=== PATIENT | male | born 1955 | race Caucasian/White ===

== ENCOUNTER 2016-11-25 22:59 | Emergency (ER) | payer MEDICARE, OTHER ==
[~2016-11-25 22:59] MED LIST: CETI5TAB2 PO; CYCL5TAB PO; DULO20CA PO; GABA-585 PO; HYDR-2163 PO; NAPR250T2 PO; PRED1TAB3 PO; TRAM50TA PO; TRAZ50TA15 PO
[2016-11-25] MEDS ORDERED: IPRATRPIUM/ALBUTEROL 0.5/2.5MG 3 ML NEBU. NEB ONE (23:15)
[2016-11-25] MEDS ORDERED: ALBUTEROL SULFATE 2.5 MG/3 ML NEBU. NEB ONE (23:30)
[2016-11-25 23:56] LABS: BASO # 0.1 x10^3/uL (0.0-0.2); BASO % 1 % (0-3); EOS % 3 % (0-3); HEMATOCRIT 48.8 % (39.0-53.0); HEMOGLOBIN 15.9 g/dL (13.0-17.5); LYMPH # 2.8 x10^3/uL (1.0-4.8); LYMPH % 31 % (24-48); MEAN CORPUSCULAR HEMOGLOBIN 28 pg (25-35); MEAN CORPUSCULAR HGB CONC 33 g/dL (31-37); MEAN CORPUSCULAR VOLUME 86 fL (79-100); MONO % 9 % (0-9); NEUT % 57 % (31-73); PLATELET COUNT 190 x10^3/uL (140-400); RED BLOOD COUNT 5.67 x10^6/uL (4.30-5.70); RED CELL DISTRIBUTION WIDTH 13.6 % (11.5-14.5); WHITE BLOOD COUNT 9.2 x10^3/uL (4.0-11.0)
[2016-11-26 00:12] LABS: ANION GAP 9 (6-14); BLOOD UREA NITROGEN 11 mg/dL (8-26); CALCIUM 8.6 mg/dL (8.5-10.1); CARBON DIOXIDE 27 mmol/L (21-32); CHLORIDE 106 mmol/L (98-107); CREATININE 1.1 mg/dL (0.7-1.3); GFR 68.3; GLUCOSE 105 mg/dL (70-99); SODIUM 142 mmol/L (136-145)
[2016-11-26 00:19] LABS: ALBUMIN 3.7 g/dL (3.4-5.0); ALK PHOS 74 U/L (46-116); ALT (SGPT) 17 U/L (16-63); AST (SGOT) 10 U/L (15-37); DIRECT BILIRUBIN < 0.1 mg/dL (0.0-0.2); TOTAL BILIRUBIN 0.2 mg/dL (0.2-1.0); TOTAL PROTEIN 7.4 g/dL (6.4-8.2)
[2016-11-26] MEDS ORDERED: PREDNISONE 10 MG TABLET PO ONE (01:00)
[2016-11-26] MEDS ORDERED: ALBUTEROL SULFATE 2.5 MG/3 ML NEBU. NEB ONE (01:00)
[2016-11-26 01:04] VITALS: BP 125/78
--- NOTE | 2016-11-26 01:10 | PHYS DOC ---
Past Medical History Past Medical History: Depression, Other Additional Past Medical Histor: CHRONIC BACK PAIN, PANIC ATTACKS, R hip abcess Past Surgical History: Other Additional Past Surgical Histo: R LEG FRACTURE REPAIR, L wrist Additional Information: 1 pack per day Alcohol Use: Occasionally Drug Use: None Adult General Chief Complaint Chief Complaint: SHORTNESS OF BREATH HPI HPI 61-year-old male presenting to the emergency department today with worsening shortness of breath for a week with a dry productive cough. He describes his sputum is white thick. He also has neck and back pain. He denies neck stiffness. He denies meningismus or confusion. His fevers or chills. Location lungs. Duration intermittent. No alleviating factors. Worse with walking. Review of systems is negative for chest pain abdominal pain nausea vomiting or diaphoresis.All other review of systems is negative unless otherwise noted in history of present illness. Review of Systems Review of Systems See above. Current Medications Current Medications Current Medications Medications (Trade) Dose Ordered Sig/Cyndee Start Time Stop Time Status Last Admin Dose Admin Albuterol Sulfate (Ventolin Neb Soln) 2.5 mg 1X ONCE 11/26/16 01:00 11/26/16 01:01 DC 11/26/16 00:54 2.5 MG Albuterol/ Ipratropium (Duoneb) 3 ml 1X ONCE 11/25/16 23:15 11/25/16 23:16 DC 11/25/16 23:17 3 ML Prednisone (Prednisone) 50 mg 1X ONCE 11/26/16 01:00 11/26/16 01:01 DC 11/26/16 00:49 50 MG Allergies Allergies Allergies Coded Allergies Type Severity Reaction Last Updated Verified No Known Drug Allergies 04/28/14 No Physical Exam Physical Exam Constitutional: Well developed, well nourished, no acute distress, non-toxic appearance. HENT: Normocephalic, atraumatic, bilateral external ears normal, oropharynx moist, no oral exudates, nose normal. [] Eyes: PERRLA, EOMI, conjunctiva normal, no discharge. Neck: Normal range of motion, no tenderness, supple, no stridor. [] Cardiovascular:Heart rate regular rhythm, no murmur Lungs & Thorax: Patient has diffuse wheezing bilaterally with prolonged expiratory phase. Abdomen: Bowel sounds normal, soft, no tenderness, no masses, no pulsatile masses. Skin: Warm, dry, no erythema, no rash. [] Back: No tenderness, no CVA tenderness. [] Extremities: No tenderness, no cyanosis, no clubbing, ROM intact, no edema. [] Neurologic: Alert and oriented X 3, normal motor function, normal sensory function, no focal deficits noted. [] Psychologic: Affect normal, judgement normal, mood normal. [] Current Patient Data Vital Signs Vital Signs Date Time Temp Pulse Resp B/P Pulse Ox O2 Delivery O2 Flow Rate FiO2 11/26/16 01:04 74 19 125/78 93 Nasal Cannula 2 11/25/16 23:00 97.0 97.0 Lab Values Laboratory Tests Test 11/25/16 23:50 White Blood Count 9.2x10^3/uL (4.0-11.0) Red Blood Count 5.67x10^6/uL (4.30-5.70) Hemoglobin 15.9g/dL (13.0-17.5) Hematocrit 48.8% (39.0-53.0) Mean Corpuscular Volume 86fL (79-100) Mean Corpuscular Hemoglobin 28pg (25-35) Mean Corpuscular Hemoglobin Concent 33g/dL (31-37) Red Cell Distribution Width 13.6% (11.5-14.5) Platelet Count 190x10^3/uL (140-400) Neutrophils (%) (Auto) 57% (31-73) Lymphocytes (%) (Auto) 31% (24-48) Monocytes (%) (Auto) 9% (0-9) Eosinophils (%) (Auto) 3% (0-3) Basophils (%) (Auto) 1% (0-3) Neutrophils # (Auto) 5.2x10^3uL (1.8-7.7) Lymphocytes # (Auto) 2.8x10^3/uL (1.0-4.8) Monocytes # (Auto) 0.8x10^3/uL (0.0-1.1) Eosinophils # (Auto) 0.2x10^3/uL (0.0-0.7) Basophils # (Auto) 0.1x10^3/uL (0.0-0.2) Sodium Level 142mmol/L (136-145) Potassium Level 4.0mmol/L (3.5-5.1) Chloride Level 106mmol/L (98-107) Carbon Dioxide Level 27mmol/L (21-32) Anion Gap 9 (6-14) Blood Urea Nitrogen 11mg/dL (8-26) Creatinine 1.1mg/dL (0.7-1.3) Estimated GFR (Cockcroft-Gault) 68.3 Glucose Level 105mg/dL (70-99) H Calcium Level 8.6mg/dL (8.5-10.1) Total Bilirubin 0.2mg/dL (0.2-1.0) Direct Bilirubin < 0.1mg/dL (0.0-0.2) Aspartate Amino Transferase (AST) 10U/L (15-37) L Alanine Aminotransferase (ALT) 17U/L (16-63) Alkaline Phosphatase 74U/L (46-116) Troponin I Quantitative < 0.017ng/mL (0.000-0.055) FW-Mrw-H-Type Natriuretic Peptide 62pg/mL (0-124) Total Protein 7.4g/dL (6.4-8.2) Albumin 3.7g/dL (3.4-5.0) Lipase 4140U/L (73-393) H Laboratory Tests 11/25/16 23:50 Laboratory Tests 11/25/16 23:50 EKG EKG [] EKG shows sinus rhythm with a regular rate. [place] is leftward. ST segments are congruent.. Intervals show prolonged QRS. Right bundle-branch block present. Radiology/Procedures Radiology/Procedures [] Course & Med Decision Making Course & Med Decision Making Pertinent Labs and Imaging studies reviewed. (See chart for details) [] 61-year-old male presenting the emergency department with worsening shortness of breath. Vital signs satting well on 2 L with hypertension. Otherwise unremarkable. Afebrile. Physical exam showed wheezing bilaterally suggestive of COPD. The patient was given multiple nebulizer medications and oral prednisone in the emergency department. EKG not suggestive of ischemia. Chest x-ray shows no obvious infiltrate or pneumothorax. Blood work was obtained which showed normal CBC. Chemistry panel unremarkable. Troponin negative. Patient did have back pain however did not have abdominal pain nausea or vomiting. He did not have chest pain. After his nebulizing medications the patient felt much better and was desiring to go home. He was subsequently discharged home. Unfortunately after the patient discharge I saw the patient's lipase was elevated. He did have back pain however did not have nausea and vomiting. I called the patient back at approximately 3 AM. The patient did not answer. We will attempt to call the patient again in the morning. I was able to get a hold of the patient in the morning. He states he is not having any nausea or vomiting. His back pain has been present for many weeks. I recommended that he follow-up with his primary care physician over the next day or 2 to follow- up with a repeat lipase level and reevaluation. He agreed and verbalizes understanding. Dragon Disclaimer Dragon Disclaimer This electronic medical record was generated, in whole or in part, using a voice recognition dictation system. Departure Departure Impression: Primary Impression: COPD exacerbation Disposition: HOME, SELF-CARE Condition: STABLE Referrals: LUCIA SILVA Jr, MD (PCP) Patient Instructions: Chronic Obstructive Pulmonary Disease, Chronic Obstructive Pulmonary Disease Exacerbation Additional Instructions: Thank you for allowing us to participate in your care today. Followup with your primary care physician in 3 days if your symptoms do not improve. If you do not have a primary care provider you can ask for a list of our primary care providers. Return to the emergency department you have any new or concerning findings. This should be evaluated by the primary care physician and any necessary consulting services for continued management within a few days after discharge. Return to emergency room if you have any new or concerning symptoms including but not limited to fever, chills, nausea, vomiting, intractable pain, any new rashes, chest pain, shortness of air, uncontrolled bleeding, difficulty breathing, and/or vision loss. Scripts Prednisone 50 Mg [id number] Mg PO DAILY #5 TAB Prov:VERÓNICA KNOWLES MD 11/26/16 Albuterol Sulfate (Proair Hfa Inhaler)8.5 Gm [id number].[id number] Puff INH PRN Q6HRS PRN SHORTNESS OF BREATH #1 INHALER Prov:VERÓNICA KNOWLES MD 11/26/16 VERÓNICA KNOWLES MD Nov 26, 2016 01:10
[2016-11-26] MEDS ORDERED: PROAIR HFA8.5 GM INH (01:12)
[2016-11-26] MEDS ORDERED: PRED50TA PO (01:12)
--- NOTE | 2016-11-26 06:22 | EKG ---
[facility] [address] [place] [address] Test Date: 2016-11-25 Test Time: 23:07:27 Pat Name: JOZEF CORADO Department: Room: Gender: M [employer]ishment [employer]: : [id number] Requested By: VERÓNICA KNOWLES Order Number: [id number] Reading MD: Measurements Intervals Marquez Rate: 72 P: 59 DC: 144 QRS: -72 QRSD: 134 T: 26 QT: 406 QTc: 446 Interpretive Statements SINUS RHYTHM ABNORMAL LEFT AXIS DEVIATION LEFT ANTERIOR FASCICULAR BLOCK RIGHT BUNDLE BRANCH BLOCK BIFASCICULAR BLOCK ABNORMAL ECG RI6.01 No previous ECG available for comparison
--- NOTE | 2016-11-26 07:49 | RAD ---
Portable chest, 11/25/2016: History: Cough, shortness of breath Comparison is made to a study from 04/29/2014. The heart size and pulmonary vascularity are normal. No pulmonary infiltrates are seen. There is no evidence of pleural fluid. IMPRESSION: No acute cardiopulmonary abnormality is detected.
== END 2016-11-26 01:35 | disposition home or self-care (01) ==
LOC: ER 22:59
DX: J44.1 Chronic obstructive pulmonary disease with (acute) exacerbation (principal); F32.9 Major depressive disorder, single episode, unspecified; F41.0 Panic disorder [episodic paroxysmal anxiety]; G89.29 Other chronic pain; F17.210 Nicotine dependence, cigarettes, uncomplicated
CPT/HCPCS: 36415; 71010; 80048; 80076; 83690; 83880; 84484; 85027; 93005; 94640; 99285; J7512; J7620

== ENCOUNTER 2019-03-25 19:43 | Emergency (ER) | payer BC ==
[~2019-03-25] VITALS: Ht 175.3 cm; Wt 99.8 kg
[~2019-03-25 19:43] MED LIST changes: +ALBU2.5V8 INH; -NAPR250T2 PO; +NAPR250T6 PO; +PRED50TA PO; +TRAZ-118 PO; -TRAZ50TA15 PO
[2019-03-25] MEDS ORDERED: IBUPROFEN 200 MG TABLET. PO ONE (20:45)
--- NOTE | 2019-03-25 20:52 | RAD ---
CT scan of the chest, abdomen and pelvis without contrast 03/25/2019 CLINICAL HISTORY: Chest, abdominal and pelvic pain post fall. TECHNIQUE: Unenhanced, contiguous, 5 mm axial sections were obtained through the abdomen and pelvis. FINDINGS: The absence of oral and intravenous contrast limits the study for the detection of solid organ and bowel pathology. Atherosclerotic calcification of the thoracic aorta and its branches is noted. The thoracic aorta is mildly tortuous but tapers normally. Scattered coronary artery calcifications are seen. No mediastinal hematoma is noted. The heart is normal in size. No acute pulmonary infiltrate is seen. No pleural effusion or pneumothorax is noted. The liver parenchyma has a decreased attenuation consistent with fatty infiltration. The spleen, pancreas, adrenal glands and kidneys are within normal limits. Atherosclerotic calcification of the abdominal aorta is seen. The abdominal aorta tapers normally. The gallbladder is contracted. No free fluid or free air is seen within the abdomen. Air and stool seen throughout the colon. Images through the pelvis demonstrate the urinary bladder distended with urine. No free fluid is seen. No pelvic hematoma is noted. Very mild S-shaped curvature of the thoracolumbar spine is seen. An old appearing compression fracture of the T8 vertebral body is seen. Degenerative changes are seen involving the mid and lower thoracic spine and throughout the lumbar spine and both hips. IMPRESSION: No acute abnormality is seen. Electronically signed by: Leonardo Butt MD (03/25/2019 8:49 PM) [facility]
[2019-03-25] MEDS ORDERED: ORPH100T PO (21:28)
[2019-03-25] MEDS ORDERED: IBUP-1007 PO (21:28)
--- NOTE | 2019-03-25 21:28 | PHYS DOC ---
Past Medical History Past Medical History: Anxiety, COPD, Depression Additional Past Medical Histor: CHRONIC BACK PAIN, PANIC ATTACKS, R hip abcess Past Surgical History: Other Additional Past Surgical Histo: LEFT WRIST, RIGHT HIP ABSCESS REMOVAL, KLEBER IN RIGHT LEG Additional Information: 1 PPD Alcohol Use: Rarely Drug Use: None Adult General Chief Complaint Chief Complaint: BACK INJURY HPI HPI Patient is a 63 year old [f__sex] who presents with [] Review of Systems Review of Systems Constitutional: Denies fever or chills [] Eyes: Denies change in visual acuity, redness, or eye pain [] HENT: Denies nasal congestion or sore throat [] Respiratory: Denies cough or shortness of breath [] Cardiovascular: No additional information not addressed in HPI [] GI: Denies abdominal pain, nausea, vomiting, bloody stools or diarrhea [] : Denies dysuria or hematuria [] Musculoskeletal: Denies back pain or joint pain [] Integument: Denies rash or skin lesions [] Neurologic: Denies headache, focal weakness or sensory changes [] Endocrine: Denies polyuria or polydipsia [] All other systems were reviewed and found to be within normal limits, except as documented in this note. Current Medications Current Medications Current Medications Medications (Trade) Dose Ordered Sig/Cyndee Start Time Stop Time Status Last Admin Dose Admin Ibuprofen (Motrin) 600 mg 1X ONCE 03/25/19 20:45 03/25/19 20:46 DC 03/25/19 21:06 600 MG Allergies Allergies Allergies Coded Allergies Type Severity Reaction Last Updated Verified No Known Drug Allergies 04/28/14 No Physical Exam Physical Exam Constitutional: Well developed, well nourished, no acute distress, non-toxic appearance. [] HENT: Normocephalic, atraumatic, bilateral external ears normal, oropharynx moist, no oral exudates, nose normal. [] Eyes: PERRLA, EOMI, conjunctiva normal, no discharge. [] Neck: Normal range of motion, no tenderness, supple, no stridor. [] Cardiovascular:Heart rate regular rhythm, no murmur [] Lungs & Thorax: Bilateral breath sounds clear to auscultation [] Abdomen: Bowel sounds normal, soft, no tenderness, no masses, no pulsatile mass es. [] Skin: Warm, dry, no erythema, no rash. [] Back: No tenderness, no CVA tenderness. [] Extremities: No tenderness, no cyanosis, no clubbing, ROM intact, no edema. [] Neurologic: Alert and oriented X 3, normal motor function, normal sensory function, no focal deficits noted. [] Psychologic: Affect normal, judgement normal, mood normal. [] Current Patient Data Vital Signs Vital Signs Date Time Temp Pulse Resp B/P (MAP) Pulse Ox O2 Delivery O2 Flow Rate FiO2 03/25/19 20:10 98.9 75 11 149/88 (108) 98 Room Air 98.9 EKG EKG [] Radiology/Procedures Radiology/Procedures [] Course & Med Decision Making Course & Med Decision Making Pertinent Labs and Imaging studies reviewed. (See chart for details) [] Dragon Disclaimer Dragon Disclaimer This electronic medical record was generated, in whole or in part, using a voice recognition dictation system. Departure Departure Impression: Primary Impression: Fall Additional Impressions: Abdominal contusion Back contusion Disposition: HOME, SELF-CARE Condition: STABLE Referrals: ANNIE ABEL MD (PCP) Patient Instructions: Contusion, [id number], Fall Prevention and Home Safety, [id number], Incentive Spirometer Scripts Orphenadrine Citrate (ORPHENADRINE CITRATE) 100 Mg Tablet.er 100 MG PO BID PRN for MUSCLE PAIN, #14 Prov: JUVENTINO PHAM DO 03/25/19 Ibuprofen (IBUPROFEN) 600 Mg Tablet 600 MG PO Q8HRS PRN for PAIN, #20 TAB Prov: JUVENTINO PHAM DO 03/25/19 Problem Qualifiers Primary Impression: Fall Encounter type: initial encounter Qualified Codes: W19.XXXA - Unspecified fall, initial encounter Additional Impressions: Abdominal contusion Encounter type: initial encounter Qualified Codes: S30.1XXA - Contusion of abdominal wall, initial encounter Back contusion Encounter type: initial encounter Laterality: right Qualified Codes: S20.221A - Contusion of right back wall of thorax, initial encounter JUVENTINO PHAM DO March 25, 2019 21:28
[2019-03-25 21:30] VITALS: BP 141/89
== END 2019-03-25 21:30 | disposition home or self-care (01) ==
LOC: ER 19:43
DX: S30.1XXA Contusion of abdominal wall, initial encounter (principal); S20.221A Contusion of right back wall of thorax, initial encounter; J44.9 Chronic obstructive pulmonary disease, unspecified; G89.29 Other chronic pain; F17.200 Nicotine dependence, unspecified, uncomplicated; W11.XXXA Fall on and from ladder, initial encounter; Y93.E9 Activity, other interior property and clothing maintenance; Y92.89 Other specified places as the place of occurrence of the external cause; Y99.8 Other external cause status
CPT/HCPCS: 71250; 74176; 99284-25

== ENCOUNTER 2019-06-26 15:49 | Emergency (ER) | payer BC ==
[~2019-06-26] VITALS: Ht 175.3 cm; Wt 99.8 kg
[~2019-06-26 15:49] MED LIST changes: +IBUP-1007 PO; +ORPH100T PO
[2019-06-26 16:39] VITALS: BP 147/83
[2019-06-26] MEDS ORDERED: CYCL5TAB PO (17:00)
--- NOTE | 2019-06-26 17:01 | PHYS DOC ---
Past Medical History Past Medical History: Anxiety, COPD, Depression Additional Past Medical Histor: CHRONIC BACK PAIN, PANIC ATTACKS, R hip abcess Past Surgical History: Other Additional Past Surgical Histo: LEFT WRIST, RIGHT HIP ABSCESS REMOVAL, KLEBER IN RIGHT LEG Alcohol Use: Rarely Drug Use: None Adult General Chief Complaint Chief Complaint: HIP PAIN HPI HPI 63-year-old male presenting the emergency department today with left hip pain that is a sharp shooting pain that is nonradiating. It is worse when he lifts up his leg. He is able to ambulate without any difficulty. The pain is not worse when he ambulates. He denies any numbness weakness or tingling. Review of systems is negative for chest pain shortness of breath cough fevers chills. All other review of systems is negative. ED course: 63-year-old male presenting with left hip pain. No pain with passive range of motion of the hip. He does have pain when he tries to lift up the hip in the groin musculature. X-rays obtained and reviewed by myself show no obvious fracture or dislocation. We will give the patient then oral muscle relaxant to follow-up with his doctor in 2-3 days. He can follow-up with physical therapy as well for strength training in stretching. Allergies Allergies Allergies Coded Allergies Type Severity Reaction Last Updated Verified No Known Drug Allergies 04/28/14 No Physical Exam Physical Exam Constitutional: Well developed, well nourished, no acute distress, non-toxic appearance. [] HENT: Normocephalic, atraumatic, bilateral external ears normal, oropharynx moist, no oral exudates, nose normal. [] Eyes: PERRLA, EOMI, conjunctiva normal, no discharge. [] Neck: Normal range of motion, no tenderness, supple, no stridor. [] Cardiovascular:Heart rate regular rhythm, no murmur [] Lungs & Thorax: Bilateral breath sounds clear to auscultation [] Abdomen: Bowel sounds normal, soft, no tenderness, no masses, no pulsatile masses. [] Skin: Warm, dry, no erythema, no rash. [] Back: No tenderness, no CVA tenderness. [] Extremities: No tenderness, no cyanosis, no clubbing, ROM intact, no edema. [] Neurologic: Alert and oriented X 3, normal motor function, normal sensory function, no focal deficits noted. [] Psychologic: Affect normal, judgement normal, mood normal. [] EKG EKG [] Radiology/Procedures Radiology/Procedures [] Course & Med Decision Making Course & Med Decision Making Pertinent Labs and Imaging studies reviewed. (See chart for details) [] Dragon Disclaimer Dragon Disclaimer This electronic medical record was generated, in whole or in part, using a voice recognition dictation system. Departure Departure Impression: Primary Impression: Musculoskeletal pain Disposition: HOME, SELF-CARE Condition: STABLE Referrals: ANNIE ABEL MD (PCP) Patient Instructions: Musculoskeletal Pain Additional Instructions: Thank you for allowing us to participate in your care today. Return to the emergency department you have any new or worsening symptoms, or if you are concerned for any reason. Return to emergency department if you have any new or concerning symptoms including but not limited to fever, chills, nausea, vomiting, intractable pain, any new rashes, chest pain, shortness of air, uncontrolled bleeding, difficulty breathing, and/or vision loss. Follow up with your primary care physician within 1-2 days and physical therapy in 2-3 days. Call your Primary Doctor tomorrow and inform them of your visit today. If you do not have a primary care provider we are happy to provide you with a list of our primary care providers contact information. This condition should be evaluated by your primary care physician and any recommended consulting services for continued management within 2 days after discharge. If at any time, you are having difficulty getting into your primary care doctor or a specialist, return to the emergency department. Scripts Cyclobenzaprine Hcl (CYCLOBENZAPRINE HCL) 5 Mg Tablet 1 TAB PO TID, #10 TAB 0 Refills Prov: VERÓNICA KNOWLES MD 06/26/19 VERÓNICA KNOWLES MD Jun 26, 2019 17:01
--- NOTE | 2019-06-26 17:04 | RAD ---
HIP LEFT 2V WITH PELVIS History: Hip pain.. Comparison: None No evidence of an acute fracture. Joint spaces appear intact. No aggressive bone destruction. No significant soft tissue abnormality. IMPRESSION: No evidence of acute fracture or dislocation. If there is persistent clinical concern for occult fracture, consider follow-up with MRI. Electronically signed by: Don Hutchinson MD (06/26/2019 5:01 PM) [facility]
== END 2019-06-26 17:06 | disposition home or self-care (01) ==
LOC: ER 15:49
DX: M25.552 Pain in left hip (principal); J44.9 Chronic obstructive pulmonary disease, unspecified; G89.29 Other chronic pain
CPT/HCPCS: 73502; 99284

== ENCOUNTER 2019-11-01 20:11 | Emergency (ER) | payer BC ==
[~2019-11-01] VITALS: Ht 180.3 cm; Wt 108.9 kg
--- NOTE | 2019-11-01 22:19 | PHYS DOC ---
Past Medical History Past Medical History: Asthma, COPD, Hypertension Additional Past Medical Histor: CHRONIC BACK PAIN, PANIC ATTACKS, R hip abcess (ANJUM LOCKHART APRN) Past Surgical History: Other Additional Past Surgical Histo: LEFT WRIST, RIGHT HIP ABSCESS REMOVAL, KLEBER IN RIGHT LEG (ANJUM LOCKHART APRN) Alcohol Use: Rarely Drug Use: None (ANJUM LOCKHART APRN) Attending Signature I have participated in the care of this patient and I have reviewed and agree with all pertinent clinical information above including history, exam, and recommendations. (DUANE LEARY MD) Adult General Chief Complaint Chief Complaint: SHORTNESS OF BREATH HPI HPI Patient is a 63 year old male] who presents with [progressing dyspnea over the last week. Patient reports he has felt more short of breath over the last week, states he does seem to run on the air more he walks. Reports he does have some dyspnea discomfort in his back as he walks, but reports he has chronic back pain. Denies any chest pain. Denies any fevers. Does state he has been using his breo inhaler, and he uses albuterol inhaler 10:00 this morning. States he just feels like he can't catch his breath sometimes, denies any coughing, denies any fever, denies any nausea vomiting diarrhea.. Patient also reports he has noticed some swelling in his hands and legs over the past few days.] (ANJUM LOCKHART APRN) Review of Systems Review of Systems Constitutional: Denies fever or chills [] Eyes: Denies change in visual acuity, redness, or eye pain [] HENT: Denies nasal congestion or sore throat [] Respiratory: Denies cough reports of 7 days progressive increasing shortness of breath[] Cardiovascular: No additional information not addressed in HPI [] GI: Denies abdominal pain, nausea, vomiting, bloody stools or diarrhea [] : Denies dysuria or hematuria [] Musculoskeletal: Denies back pain or joint pain [] Integument: Denies rash or skin lesions [] Neurologic: Denies headache, focal weakness or sensory changes [] Endocrine: Denies polyuria or polydipsia [] All other systems were reviewed and found to be within normal limits, except as documented in this note. (ANJUM LOCKHART APRN) Current Medications Current Medications Current Medications Medications (Trade) Dose Ordered Sig/Cyndee Start Time Stop Time Status Last Admin Dose Admin Albuterol/ Ipratropium (Duoneb) 3 ml 1X ONCE 11/01/19 22:30 11/01/19 22:31 DC 11/01/19 22:27 3 ML Furosemide (Lasix) 40 mg 1X ONCE 11/02/19 01:30 11/02/19 01:31 DC 11/02/19 01:30 40 MG Methylprednisolone Sodium Succinate (SOLU-Medrol 125MG VIAL) 125 mg 1X ONCE 11/01/19 22:30 11/01/19 22:31 DC 11/01/19 22:54 125 MG (DUANE LEARY MD) Allergies Allergies Allergies Coded Allergies Type Severity Reaction Last Updated Verified No Known Drug Allergies 04/28/14 No (DUANE LEARY MD) Physical Exam Physical Exam Constitutional: Well developed, well nourished, no acute distress, non-toxic appearance. [] HENT: Normocephalic, atraumatic, bilateral external ears normal, oropharynx moist, no oral exudates, nose normal. [] . [] Cardiovascular:Heart rate regular rhythm, no murmur [] Lungs & Thorax: Wheezes noted bilaterally to bases. Patient speaking in full sentences, however does appear to run out of air after speaking multiple full sentences.[] Abdomen: Bowel sounds normal, soft, no tenderness, no masses, no pulsatile masses. [] Skin: Warm, dry, no erythema, no rash. [] Back: No tenderness, no CVA tenderness. [] Extremities: No tenderness, no cyanosis, no clubbing, ROM intact, no edema. No discoloration to bilateral lower extremities. Noted tenderness bilaterally to the lower legs, patient attributes to his rods in his legs from prior fractures, No palpable cords noted. [] Neurologic: Alert and oriented X 3, normal motor function, normal sensory function, no focal deficits noted. [] Psychologic: Affect normal, judgement normal, mood normal. [] (ANJUM LOCKHART APRN) Current Patient Data Vital Signs Vital Signs Date Time Temp Pulse Resp B/P (MAP) Pulse Ox O2 Delivery O2 Flow Rate FiO2 11/02/19 01:28 84 20 127/68 (87) 95 Room Air 11/01/19 21:34 100.0 100.0 (DUANE LEARY MD) Lab Values Laboratory Tests Test 11/01/19 21:53 11/01/19 22:00 Influenza Type A Antigen Negative (NEGATIVE) Influenza Type B Antigen Negative (NEGATIVE) White Blood Count 7.8 x10^3/uL (4.0-11.0) Red Blood Count 5.14 x10^6/uL (4.30-5.70) Hemoglobin 14.6 g/dL (13.0-17.5) Hematocrit 43.6 % (39.0-53.0) Mean Corpuscular Volume 85 fL (79-100) Mean Corpuscular Hemoglobin 28 pg (25-35) Mean Corpuscular Hemoglobin Concent 33 g/dL (31-37) Red Cell Distribution Width 13.9 % (11.5-14.5) Platelet Count 223 x10^3/uL (140-400) Neutrophils (%) (Auto) 74 % (31-73) H Lymphocytes (%) (Auto) 12 % (24-48) L Monocytes (%) (Auto) 13 % (0-9) H Eosinophils (%) (Auto) 1 % (0-3) Basophils (%) (Auto) 1 % (0-3) Neutrophils # (Auto) 5.8 x10^3/uL (1.8-7.7) Lymphocytes # (Auto) 0.9 x10^3/uL (1.0-4.8) L Monocytes # (Auto) 1.0 x10^3/uL (0.0-1.1) Eosinophils # (Auto) 0.1 x10^3/uL (0.0-0.7) Basophils # (Auto) 0.1 x10^3/uL (0.0-0.2) D-Dimer (Kimberley) 0.39 ug/mlFEU (0.00-0.50) Sodium Level 140 mmol/L (136-145) Potassium Level 3.7 mmol/L (3.5-5.1) Chloride Level 103 mmol/L (98-107) Carbon Dioxide Level 28 mmol/L (21-32) Anion Gap 9 (6-14) Blood Urea Nitrogen 12 mg/dL (8-26) Creatinine 1.4 mg/dL (0.7-1.3) H Estimated GFR (Cockcroft-Gault) 51.4 BUN/Creatinine Ratio 9 (6-20) Glucose Level 116 mg/dL (70-99) H Calcium Level 8.5 mg/dL (8.5-10.1) Total Bilirubin 0.2 mg/dL (0.2-1.0) Aspartate Amino Transferase (AST) 25 U/L (15-37) Alanine Aminotransferase (ALT) 21 U/L (16-63) Alkaline Phosphatase 73 U/L (46-116) Troponin I Quantitative 0.022 ng/mL (0.000-0.055) TK-Zaw-J-Type Natriuretic Peptide 408 pg/mL (0-124) H Total Protein 7.0 g/dL (6.4-8.2) Albumin 3.4 g/dL (3.4-5.0) Albumin/Globulin Ratio 0.9 (1.0-1.7) L Laboratory Tests 11/01/19 22:00 Laboratory Tests 11/01/19 22:00 (DUANE LEARY MD) Lab Values Laboratory Tests Test 11/01/19 21:53 11/01/19 22:00 Influenza Type A Antigen Negative (NEGATIVE) Influenza Type B Antigen Negative (NEGATIVE) White Blood Count 7.8 x10^3/uL (4.0-11.0) Red Blood Count 5.14 x10^6/uL (4.30-5.70) Hemoglobin 14.6 g/dL (13.0-17.5) Hematocrit 43.6 % (39.0-53.0) Mean Corpuscular Volume 85 fL (79-100) Mean Corpuscular Hemoglobin 28 pg (25-35) Mean Corpuscular Hemoglobin Concent 33 g/dL (31-37) Red Cell Distribution Width 13.9 % (11.5-14.5) Platelet Count 223 x10^3/uL (140-400) Neutrophils (%) (Auto) 74 % (31-73) H Lymphocytes (%) (Auto) 12 % (24-48) L Monocytes (%) (Auto) 13 % (0-9) H Eosinophils (%) (Auto) 1 % (0-3) Basophils (%) (Auto) 1 % (0-3) Neutrophils # (Auto) 5.8 x10^3/uL (1.8-7.7) Lymphocytes # (Auto) 0.9 x10^3/uL (1.0-4.8) L Monocytes # (Auto) 1.0 x10^3/uL (0.0-1.1) Eosinophils # (Auto) 0.1 x10^3/uL (0.0-0.7) Basophils # (Auto) 0.1 x10^3/uL (0.0-0.2) D-Dimer (Kimberley) 0.39 ug/mlFEU (0.00-0.50) Sodium Level 140 mmol/L (136-145) Potassium Level 3.7 mmol/L (3.5-5.1) Chloride Level 103 mmol/L (98-107) Carbon Dioxide Level 28 mmol/L (21-32) Anion Gap 9 (6-14) Blood Urea Nitrogen 12 mg/dL (8-26) Creatinine 1.4 mg/dL (0.7-1.3) H Estimated GFR (Cockcroft-Gault) 51.4 BUN/Creatinine Ratio 9 (6-20) Glucose Level 116 mg/dL (70-99) H Calcium Level 8.5 mg/dL (8.5-10.1) Total Bilirubin 0.2 mg/dL (0.2-1.0) Aspartate Amino Transferase (AST) 25 U/L (15-37) Alanine Aminotransferase (ALT) 21 U/L (16-63) Alkaline Phosphatase 73 U/L (46-116) Troponin I Quantitative 0.022 ng/mL (0.000-0.055) EG-Lee-N-Type Natriuretic Peptide 408 pg/mL (0-124) H Total Protein 7.0 g/dL (6.4-8.2) Albumin 3.4 g/dL (3.4-5.0) Albumin/Globulin Ratio 0.9 (1.0-1.7) L Laboratory Tests 11/01/19 22:00 Laboratory Tests 11/01/19 22:00 (ANJUM LOCKHART APRN) EKG EKG [] (ANJUM LOCKHART APRN) Radiology/Procedures Radiology/Procedures [] (ANJUM LOCKHART APRN) Course & Med Decision Making Course & Med Decision Making Pertinent Labs and Imaging studies reviewed. (See chart for details) [patient reports he is feeling a little better. Reviewed labs and imaging, will the patient on short course of diuretics, patient to follow up with primary care provider] (ANJUM LOCKHART APRN) Dragon Disclaimer Dragon Disclaimer This electronic medical record was generated, in whole or in part, using a voice recognition dictation system. (ANJUM LOCKHART APRN) Departure Departure Impression: Primary Impression: Dyspnea Additional Impression: Elevated brain natriuretic peptide (BNP) level Disposition: 01 HOME, SELF-CARE Condition: GOOD Referrals: ANNIE ABEL MD (PCP) Patient Instructions: Edema Additional Instructions: As discussed, take medication once per day as prescribed. Try to get into your primary care provider in the next few days to reevaluate sure concern. Continue to use her inhaler as needed for breathing. . primary care provider about a nebulizer Scripts Hydrochlorothiazide (HYDROCHLOROTHIAZIDE TABLET) 12.5 Mg Tablet 12.5 MG PO DAILY for DIURETIC, #14 TAB 0 Refills Prov: ANJUM LOCKHART APRN 11/02/19 Problem Qualifiers Primary Impression: Dyspnea Dyspnea type: shortness of breath Qualified Codes: R06.02 - Shortness of breath ANJUM LOCKHART APRN Nov 01, 2019 22:19 DUANE LEARY MD Nov 02, 2019 07:58
[2019-11-01] MEDS: IPRATRPIUM/ALBUTEROL 0.5/2.5MG 3 ML NEBU. NEB ONE (22:27)
[2019-11-01 22:28] LABS: BASO # 0.1 x10^3/uL (0.0-0.2); BASO % 1 % (0-3); EOS # 0.1 x10^3/uL (0.0-0.7); EOS % 1 % (0-3); HEMATOCRIT 43.6 % (39.0-53.0); HEMOGLOBIN 14.6 g/dL (13.0-17.5); LYMPH # 0.9 x10^3/uL (1.0-4.8); LYMPH % 12 % (24-48); MEAN CORPUSCULAR HEMOGLOBIN 28 pg (25-35); MEAN CORPUSCULAR HGB CONC 33 g/dL (31-37); MEAN CORPUSCULAR VOLUME 85 fL (79-100); MONO % 13 % (0-9); NEUT # 5.8 x10^3/uL (1.8-7.7); NEUT % 74 % (31-73); PLATELET COUNT 223 x10^3/uL (140-400); RED BLOOD COUNT 5.14 x10^6/uL (4.30-5.70); RED CELL DISTRIBUTION WIDTH 13.9 % (11.5-14.5); WHITE BLOOD COUNT 7.8 x10^3/uL (4.0-11.0)
[2019-11-01 22:39] LABS: CALCIUM 8.5 mg/dL (8.5-10.1); CREATININE 1.4 mg/dL (0.7-1.3); GFR 51.4; POTASSIUM 3.7 mmol/L (3.5-5.1)
[2019-11-01 22:45] LABS: INFLUENZA A PATIENT NEGATIVE (NEGATIVE); INFLUENZA B PATIENT NEGATIVE (NEGATIVE)
[2019-11-01 22:46] LABS: ALBUMIN 3.4 g/dL (3.4-5.0); ALBUMIN/GLOBULIN RATIO 0.9 (1.0-1.7); TOTAL BILIRUBIN 0.2 mg/dL (0.2-1.0)
--- NOTE | 2019-11-01 22:50 | RAD ---
EXAM: CHEST 1 VIEW History: Chest pain, shortness of breath COMPARISON: 11/25/2016 TECHNIQUE: Single portable radiograph of the chest FINDINGS: The cardiac silhouette is unremarkable. Mild bibasilar lung airspace opacities likely atelectasis or infiltrates. The costophrenic sulci are clear and well demarcated. Probable old right rib fractures. IMPRESSION: Mild bibasilar lung airspace opacities likely atelectasis or infiltrates. Electronically signed by: Jesús Brown MD (11/01/2019 10:47 PM) [facility]
[2019-11-01] MEDS: methylPREDNISolone SOD SUCC PF 125 MG/2 ML VIAL. IV ONE (22:54)
[2019-11-02] MEDS ORDERED: HYDR12.58 PO (01:01)
[2019-11-02 01:28] VITALS: BP 127/68
[2019-11-02] MEDS: FUROSEMIDE 40 MG TABLET. PO ONE (01:30)
--- NOTE | 2019-11-02 07:19 | EKG ---
[facility] [address] [place] [address] Test Date: 2019-11-01 Test Time: 23:26:42 Pat Name: JOZEF CORADO Department: Room: Gender: M Human Resources Administrator: : [id number] Requested By: ANJUM LOCKHART Order Number: [id number] Reading MD: Measurements Intervals [place] Rate: 91 P: 45 OK: 128 QRS: -71 QRSD: 126 T: 0 QT: 396 QTc: 488 Interpretive Statements SINUS RHYTHM VENTRICULAR PREMATURE COMPLEX(ES) ABNORMAL LEFT AXIS DEVIATION LEFT ANTERIOR FASCICULAR BLOCK NON SPECIFIC INTRAVENTRICULAR BLOCK ABNORMAL ECG No previous ECG available for comparison
[2019-11-04] MEDS ORDERED: DULO20CA PO (21:49)
== END 2019-11-02 01:40 | disposition home or self-care (01) ==
LOC: ER 20:11
DX: R06.02 Shortness of breath (principal); R79.0 Abnormal level of blood mineral; G89.29 Other chronic pain; M54.9 Dorsalgia, unspecified; J44.9 Chronic obstructive pulmonary disease, unspecified; I10 Essential (primary) hypertension
CPT/HCPCS: 36415; 71045; 80053; 83880; 84484; 85025; 85379; 87804; 93005; 94640; 96374; 99285; J2930; J7620

== ENCOUNTER → 2020-01-05 | Outpatient (CLI) | payer BC ==
[2019-11-06 11:00] VITALS: BP 127/76
[~2020-01-05] MED LIST changes: +HYDR12.58 PO; +IPRA3AMP29 NEB
--- NOTE | 2020-01-05 17:26 | KCIC ---
CT LOW DOSE LUNG SCREENING Indication: Tobacco abuse, lung cancer screening, smoker 45+ years, COPD Technique: Noncontrast CT imaging was performed of the chest as per low dose screening protocol, multiplanar reconstruction images submitted. One or more of the following individualized dose reduction techniques were utilized for this examination: 1. Automated exposure control 2. Adjustment of the mA and/or kV according to patient size 3. Use of iterative reconstruction technique. Comparison: March 25, 2019 FINDINGS: There is no new pulmonary nodularity. Minimal linear density in the right mainstem bronchus proximally is more likely due to mucus. There is mild centrilobular emphysema. There is no new pleural or pericardial fluid, pneumothorax, or infiltrate. Tubular ascending thoracic aorta is ectatic about 4 cm as seen previously. There are some small mediastinal nodes as seen previously. Thoracic vertebral body stature is unchanged, again old compression deformity of T8 and to lesser degree superiorly of T9. IMPRESSION: 1. There is no new suspicious pulmonary nodularity, lung RADS category 1. Twelve-month low-dose screening CT is advised. 2. There is centrilobular emphysema. 3. Somewhat dilated tubular ascending thoracic aorta about 4 cm is similar. Electronically signed by: Waqas Bruce MD (01/05/2020 5:23 PM) [id number]
== END | disposition home or self-care (01) ==
LOC: KCIC CT 12:35
PROVIDERS: ATTEND Internal Medicine
DX: Z12.2 Encounter for screening for malignant neoplasm of respiratory organs (principal); J43.2 Centrilobular emphysema; I77.810 Thoracic aortic ectasia; J98.4 Other disorders of lung; Z72.0 Tobacco use
CPT/HCPCS: G0297

== ENCOUNTER 2020-07-19 18:12 | Emergency (ER) | payer BC ==
[~2020-07-19] VITALS: Ht 175.3 cm; Wt 105.0 kg
[2020-07-19 20:21] LABS: FECAL OB PT NEGATIVE (NEG)
--- NOTE | 2020-07-19 20:21 | PHYS DOC ---
Past Medical History Past Medical History: Asthma, COPD, Depression, GI Bleed, Hypertension Additional Past Medical Histor: CHRONIC BACK PAIN, PANIC ATTACKS, R hip abcess Past Surgical History: Other Additional Past Surgical Histo: LEFT WRIST, RIGHT HIP ABSCESS REMOVAL, KLEBER IN RIGHT LEG Smoking Status: Current Every Day Smoker Additional Information: PACK/ DAY Alcohol Use: None Drug Use: None General Adult EDM: Chief Complaint: BLOODY STOOL HPI: HPI: Patient is a 64 year old male presents for evaluation of blood in his stool. Patient states he has had several months of blood in his stool with BMs. Patient states he recently underwent a colonoscopy due to the concern of cancer and was found to have ulcers. Patient states today around 1700 hrs. patient had large amount of blood in his stool. Denies any associated abdominal discomfort. No associated nausea vomiting chest patient or any unusual shortness of breath. Patient is not on any blood thinning medications. Review of Systems: Review of Systems: Constitutional: Denies fever or chills. [] Eyes: Denies change in visual acuity. [] HENT: Denies nasal congestion or sore throat. [] Respiratory: Denies cough or shortness of breath. [] Cardiovascular: Denies chest pain or edema. [] GI: Denies abdominal pain, nausea, vomiting, positive bloody stools : Denies dysuria. [] Musculoskeletal: Denies back pain or joint pain. [] Integument: Denies rash. [] Neurologic: Denies headache, focal weakness or sensory changes. [] Endocrine: Denies polyuria or polydipsia. [] Lymphatic: Denies swollen glands. [] Psychiatric: Denies depression or anxiety. [] Heart Score: Risk Factors: Risk Factors: DM, Current or recent (<one month) smoker, HTN, HLP, family history of CAD, obesity. Risk Scores: Score 0 - 3: 2.5% MACE over next 6 weeks - Discharge Home Score 4 - 6: 20.3% MACE over next 6 weeks - Admit for Clinical Observation Score 7 - 10: 72.7% MACE over next 6 weeks - Early Invasive Strategies Allergies: Allergies: Allergies Coded Allergies Type Severity Reaction Last Updated Verified No Known Drug Allergies 04/28/14 No Physical Exam: PE: Constitutional: Well developed, well nourished, no acute distress, non-toxic appearance. [] HENT: Normocephalic, atraumatic, bilateral external ears normal, oropharynx moist, no oral exudates, nose normal. [] Eyes: PERRLA, EOMI, conjunctiva normal, no discharge. [] Neck: Normal range of motion, no tenderness, supple, no stridor. [] Cardiovascular:Heart rate regular rhythm, no murmur [] Lungs & Thorax: Bilateral breath sounds clear to auscultation [] Abdomen: Bowel sounds normal, soft, no tenderness, no masses, no pulsatile masses. [] Rectal exam performed no hemorrhoids no anal fissures observed no bright red blood on rectal exam. Occult stool pending Skin: Warm, dry, no erythema, no rash. [] Back: No tenderness, no CVA tenderness. [] Extremities: No tenderness, no cyanosis, no clubbing, ROM intact, no edema. [] Neurologic: Alert and oriented X 3, normal motor function, normal sensory function, no focal deficits noted. [] Psychologic: Affect normal, judgement normal, mood normal. [] Current Patient Data: Vital Signs: Vital Signs Date Time Temp Pulse Resp B/P (MAP) Pulse Ox O2 Delivery O2 Flow Rate FiO2 07/19/20 19:18 98.4 66 15 105/67 (80) 95 Room Air 98.4 EKG: EKG: [] Radiology/Procedures: Radiology/Procedures: [] Course & Med Decision Making: Course & Med Decision Making Pertinent Labs and Imaging studies reviewed. (See chart for details) []Occult blood negative CBC stable at 14 Dragon Disclaimer: Dragon Disclaimer: This electronic medical record was generated, in whole or in part, using a voice recognition dictation system. Departure Departure Impression: Primary Impression: Blood in stool Additional Impression: Rectal bleeding Disposition: HOME, SELF-CARE Condition: STABLE Referrals: ANNIE ABEL MD (PCP) Patient Instructions: Fecal Occult Blood Test, Rectal Bleeding Justicifation of Admission Dx: Justifications for Admission: Justification of Admission Dx: N/A PORSHA CONKLIN DO Jul 19, 2020 20:21
[2020-07-19 20:22] LABS: BASO # 0.1 x10^3/uL (0.0-0.2); BASO % 1 % (0-3); EOS # 0.2 x10^3/uL (0.0-0.7); EOS % 3 % (0-3); HEMATOCRIT 42.8 % (39.0-53.0); HEMOGLOBIN 14.2 g/dL (13.0-17.5); LYMPH # 1.9 x10^3/uL (1.0-4.8); LYMPH % 24 % (24-48); MEAN CORPUSCULAR HEMOGLOBIN 28 pg (25-35); MEAN CORPUSCULAR HGB CONC 33 g/dL (31-37); MEAN CORPUSCULAR VOLUME 85 fL (79-100); MONO # 0.8 x10^3/uL (0.0-1.1); MONO % 10 % (0-9); NEUT # 4.9 x10^3/uL (1.8-7.7); NEUT % 62 % (31-73); PLATELET COUNT 209 x10^3/uL (140-400); RED BLOOD COUNT 5.05 x10^6/uL (4.30-5.70); RED CELL DISTRIBUTION WIDTH 14.3 % (11.5-14.5)
[2020-07-19 21:20] VITALS: BP 171/79
== END 2020-07-19 21:35 | disposition home or self-care (01) ==
LOC: ER 18:12
DX: K92.1 Melena (principal); J44.9 Chronic obstructive pulmonary disease, unspecified; I10 Essential (primary) hypertension; G89.29 Other chronic pain
CPT/HCPCS: 36415; 82274; 85025; 99284; 99285

== ENCOUNTER 2022-02-14 17:54 | Inpatient (IN) | payer BC ==
[~2022-02-14] VITALS: Ht 167.6 cm; Wt 105.5 kg
[~2022-02-14 17:54] MED LIST changes: -HYDR-2163 PO; +HYDR-3068 PO; +NAPR-699 PO; -NAPR250T6 PO
[2022-02-14 20:25] LABS: BASO # 0.1 x10^3/uL (0.0-0.2); BASO % 1 % (0-3); EOS # 0.2 x10^3/uL (0.0-0.7); EOS % 2 % (0-3); HEMATOCRIT 43.5 % (39.0-53.0); HEMOGLOBIN 14.3 g/dL (13.0-17.5); LYMPH # 1.5 x10^3/uL (1.0-4.8); LYMPH % 15 % (24-48); MEAN CORPUSCULAR HEMOGLOBIN 28 pg (25-35); MEAN CORPUSCULAR HGB CONC 33 g/dL (31-37); MEAN CORPUSCULAR VOLUME 86 fL (79-100); MONO % 9 % (0-9); NEUT # 7.7 x10^3/uL (1.8-7.7); NEUT % 73 % (31-73); PLATELET COUNT 258 x10^3/uL (140-400); RED BLOOD COUNT 5.07 x10^6/uL (4.30-5.70); RED CELL DISTRIBUTION WIDTH 14.6 % (11.5-14.5); WHITE BLOOD COUNT 10.5 x10^3/uL (4.0-11.0)
[2022-02-14] MEDS ORDERED: IPRATRPIUM/ALBUTEROL 0.5/2.5MG 3 ML NEBU. NEB ONE ×2 (20:30→21:30)
[2022-02-14] MEDS ORDERED: methylPREDNISolone SOD SUCC PF 125 MG/2 ML VIAL. IV ONE ×2 (20:30→21:30)
[2022-02-14 20:34] LABS: CALCIUM 8.5 mg/dL (8.5-10.1); CREATININE 1.4 mg/dL (0.7-1.3); GFR 50.9; POTASSIUM 4.5 mmol/L (3.5-5.1)
[2022-02-14 20:41] LABS: ALBUMIN 3.5 g/dL (3.4-5.0); ALBUMIN/GLOBULIN RATIO 0.9 (1.0-1.7); TOTAL BILIRUBIN 0.4 mg/dL (0.2-1.0); TOTAL PROTEIN 7.2 g/dL (6.4-8.2)
--- NOTE | 2022-02-14 20:59 | RAD ---
INDICATION: Reason: SOB / Spl. Instructions: / History: COMPARISON: October 2019 FINDINGS: 2 view of chest obtained. Callus formation at some of the right ribs which could be from prior fracture. Mild coarsening of gregory g markings bilaterally without new region of consolidation. Degenerative changes of the spine. Osteophyte formation. Compression deformity mid thoracic vertebral body. IMPRESSION: * No focal airspace consolidation. * Coarsened lung markings bilaterally which could be from emphysema. Electronically signed by: Juan Ramon Crockett MD (02/14/2022 8:56 PM) [id number]
[2022-02-14] MEDS ORDERED: cefTRIAXone IV Push 1 GM VIAL. IVP ONE (21:30)
[2022-02-14] MEDS ORDERED: DULO60CA45 PO (22:42)
[2022-02-14] MEDS ORDERED: MELO15TA23 PO (22:42)
[2022-02-14] MEDS ORDERED: AMLO-186 PO (22:42)
[2022-02-14] MEDS ORDERED: LISI40TA6 PO (22:42)
--- NOTE | 2022-02-14 22:56 | PDOC1 ---
History and Physical Date of Admission Date of Admission DATE: 02/14/22 TIME: 22:46 Source Source: Chart review, Patient History of Present Illness History of Present Illness Jim is a 66 year old male with known COPD, presetned to the ER tonight with worsenign cough, sputum production and marked shortness of breath. He was markedly wheezy when he presented to the ER and has not improved much despite steroid abx and nebs. coughing up green sputum since yesterday, he doesn't think anti-tussives would help as he feels like he gets things stuck in his throat. he has quit smoking twice and would like to try again his PCP is DR. Ocasio, last admit here 2 years ago, vasomotor nephropathy and dehydration, his COPD has been minimal and he has not seen a comic artist Past Medical History Cardiovascular: HTN Pulmonary: COPD Psych: Anxiety, Depression Musculoskeletal: low back pain, Osteoarthritis, Other Endocrine: No pertinent hx Past Surgical History Past Surgical History: Other Family History Family History: Hypertension Social History Smoke: <1 pack per day ALCOHOL: rare Current Medications Current Medications Current Medications Albuterol/ Ipratropium (Duoneb) 3 ml 1X ONCE NEB Last administered on 02/14/22at 21:05; Start 02/14/22 at 20:30; Stop 02/14/22 at 20:31; Status DC Methylprednisolone Sodium Succinate (SOLU-Medrol 125MG VIAL) 125 mg 1X ONCE IV Last administered on 02/14/22at 20:24; Start 02/14/22 at 20:30; Stop 02/14/22 at 20:31; Status DC Ceftriaxone Sodium (Rocephin) 1 gm 1X ONCE IVP Last administered on 02/14/22at 22:04; Start 02/14/22 at 21:30; Stop 02/14/22 at 21:31; Status DC Albuterol/ Ipratropium (Duoneb) 3 ml 1X ONCE NEB ; Start 02/14/22 at 21:30; Stop 02/14/22 at 21:31; Status Cancel Methylprednisolone Sodium Succinate (SOLU-Medrol 125MG VIAL) 125 mg 1X ONCE IV ; Start 02/14/22 at 21:30; Stop 02/14/22 at 21:31; Status Cancel Albuterol/ Ipratropium (Duoneb) 3 ml 1X ONCE NEB ; Start 02/15/22 at 00:00; Stop 02/15/22 at 00:01 Methylprednisolone Sodium Succinate (SOLU-Medrol 125MG VIAL) 125 mg 1X ONCE IV ; Start 02/15/22 at 00:00; Stop 02/15/22 at 00:01 Active Scripts Active Duoneb 0.5-3(2.5) Mg/3 Ml (Albuterol/Ipratropium) 3 Ml Ampul.neb 3 Ml NEB RTQID 30 Days Prednisone 50 Mg Tablet 50 Mg PO DAILY 5 Days Cyclobenzaprine Hcl 5 Mg Tablet 1 Tab PO TID Proair Hfa Inhaler (Albuterol Sulfate) 8.5 Gm Hfa.aer.ad 1 Puff INH PRN Q6HRS PRN Reported Duloxetine Hcl 60 Mg Capsule.dr 1 Cap PO DAILY Amlodipine Besylate 5 Mg Tablet 1 Tab PO DAILY Lisinopril 40 Mg Tablet 1 Tab PO DAILY Meloxicam 15 Mg Tablet 1 Tab PO DAILY Trazodone Hcl 50 Mg Tablet 50 Mg PO DAILY Cetirizine Hcl 5 Mg Tablet 5 Mg PO Gabapentin (Gabapentin) 100 Mg Capsule 100 Mg PO TID Tramadol Hcl 50 Mg Tablet 50 Mg PO DAILY PRN Allergies Allergies: Coded Allergies: No Known Drug Allergies (Unverified , 04/28/14) ROS General: YES: Chills, Fatigue PSYCHOLOGICAL ROS: YES: Anxiety, Sleep disturbances; No: Behavioral Disorder, Concentration difficultie, Decreased libido, Depression, Disorientation, Hallucinations, Hostility, Irritablity, Memory diffi culties, Mood Swings, Obsessive thoughts, Other Eyes: No Blurry vision, No Decreased vision, No Double vision, No Dry eyes, No Excessive tearing, No Eye Pain, No Itchy Eyes, No Loss of vision, No Photophobia, No Scotomata, No Uses contacts, No Uses glasses, No Other HEENT: YES: Heacaches; No: Visual Changes, Hearing change, Nasal congestion, Nasal discharge, Oral lesions, Sinus pain, Sore Throat, Epistaxis, Sneezing, Snoring, Tinnitus, Verti go, Vocal changes, Other Respiratory: YES: Cough, Shortness of breath, SOB with excertion, Sputum Changes, Tachypnea, Wheezing; No: Hemoptysis, Orthopnea, Pleuritic Pain, Stridor, Other Cardiovascular: No Chest Pain, No Palpitations, No Orthopnea, No Paroxysmal Noc. Dyspnea, No Edema, No Lt Headedness, No Other Gastrointestinal: No Nausea, No Vomiting, No Abdominal Pain, No Diarrhea, No Constipation, No Melena, No Hematochezia, No Other Genitourinary: No Dysuria, No Frequency, No Incontinence, No Hematuria, No Retention, No Discharge, No Urgency, No Pain, No Flank Pain, No Other, No , No , No , No , No , No , No Musculoskeletal: Yes Joint Stiffness, Yes Pain In: (back); No Gait Disturbance, No Joint Pain, No Joint Swelling, No Muscle Pain, No Muscular Weakness, No Swelling In:, No Other Neurological: No Behavorial Changes, No Bowel/Bladder ControlChng, No Confusion, No Dizziness, No Gait Disturbance, No Headaches, No Impaired Coord/balance, No Memory Loss, No Numbness/Tingling, No Seizures, No Speech Problems, No Tremors, No Visual Changes, No Weakness, No Other Skin: No Dry Skin, No Eczema, No Hair Changes, No Lumps, No Mole Changes, No Mottling, No Nail Changes, No Pruritus, No Rash, No Skin Lesion Changes, No Other, No Acne Physical Exam General: Alert, Cooperative, moderate distress HEENT: Atraumatic, PERRLA Lungs: Other (wheeze, rales, limtied volume, causes cough) Abdomen: Normal bowel sounds, Soft (obese, abd) Extremities: No clubbing, Normal pulses Skin: No rashes Neuro: Normal gait, Normal tone Psych/Mental Status: Mental status NL, Mood NL Vitals Vitals Vital Signs Date Time Temp Pulse Resp B/P (MAP) Pulse Ox O2 Delivery O2 Flow Rate FiO2 02/14/22 22:09 94 Nasal Cannula 2.0 02/14/22 21:52 74 24 143/68 (93) 02/14/22 17:56 97.8 97.8 Labs Labs Laboratory Tests Test 02/14/22 20:16 White Blood Count 10.5 x10^3/uL (4.0-11.0) Red Blood Count 5.07 x10^6/uL (4.30-5.70) Hemoglobin 14.3 g/dL (13.0-17.5) Hematocrit 43.5 % (39.0-53.0) Mean Corpuscular Volume 86 fL (79-100) Mean Corpuscular Hemoglobin 28 pg (25-35) Mean Corpuscular Hemoglobin Concent 33 g/dL (31-37) Red Cell Distribution Width 14.6 % (11.5-14.5) Platelet Count 258 x10^3/uL (140-400) Neutrophils (%) (Auto) 73 % (31-73) Lymphocytes (%) (Auto) 15 % (24-48) Monocytes (%) (Auto) 9 % (0-9) Eosinophils (%) (Auto) 2 % (0-3) Basophils (%) (Auto) 1 % (0-3) Neutrophils # (Auto) 7.7 x10^3/uL (1.8-7.7) Lymphocytes # (Auto) 1.5 x10^3/uL (1.0-4.8) Monocytes # (Auto) 1.0 x10^3/uL (0.0-1.1) Eosinophils # (Auto) 0.2 x10^3/uL (0.0-0.7) Basophils # (Auto) 0.1 x10^3/uL (0.0-0.2) D-Dimer (Kimberley) 1.18 ug/mlFEU (0.00-0.50) Sodium Level 140 mmol/L (136-145) Potassium Level 4.5 mmol/L (3.5-5.1) Chloride Level 103 mmol/L (98-107) Carbon Dioxide Level 29 mmol/L (21-32) Anion Gap 8 (6-14) Blood Urea Nitrogen 15 mg/dL (8-26) Creatinine 1.4 mg/dL (0.7-1.3) Estimated GFR (Cockcroft-Gault) 50.9 BUN/Creatinine Ratio 11 (6-20) Glucose Level 97 mg/dL (70-99) Calcium Level 8.5 mg/dL (8.5-10.1) Total Bilirubin 0.4 mg/dL (0.2-1.0) Aspartate Amino Transf (AST/SGOT) 13 U/L (15-37) Alanine Aminotransferase (ALT/SGPT) 20 U/L (16-63) Alkaline Phosphatase 81 U/L (46-116) Troponin I High Sensitivity 9 ng/L (4-75) Total Protein 7.2 g/dL (6.4-8.2) Albumin 3.5 g/dL (3.4-5.0) Albumin/Globulin Ratio 0.9 (1.0-1.7) Laboratory Tests Test 02/14/22 20:16 White Blood Count 10.5 x10^3/uL (4.0-11.0) Red Blood Count 5.07 x10^6/uL (4.30-5.70) Hemoglobin 14.3 g/dL (13.0-17.5) Hematocrit 43.5 % (39.0-53.0) Mean Corpuscular Volume 86 fL (79-100) Mean Corpuscular Hemoglobin 28 pg (25-35) Mean Corpuscular Hemoglobin Concent 33 g/dL (31-37) Red Cell Distribution Width 14.6 % (11.5-14.5) Platelet Count 258 x10^3/uL (140-400) Neutrophils (%) (Auto) 73 % (31-73) Lymphocytes (%) (Auto) 15 % (24-48) Monocytes (%) (Auto) 9 % (0-9) Eosinophils (%) (Auto) 2 % (0-3) Basophils (%) (Auto) 1 % (0-3) Neutrophils # (Auto) 7.7 x10^3/uL (1.8-7.7) Lymphocytes # (Auto) 1.5 x10^3/uL (1.0-4.8) Monocytes # (Auto) 1.0 x10^3/uL (0.0-1.1) Eosinophils # (Auto) 0.2 x10^3/uL (0.0-0.7) Basophils # (Auto) 0.1 x10^3/uL (0.0-0.2) D-Dimer (Kimberley) 1.18 ug/mlFEU (0.00-0.50) Sodium Level 140 mmol/L (136-145) Potassium Level 4.5 mmol/L (3.5-5.1) Chloride Level 103 mmol/L (98-107) Carbon Dioxide Level 29 mmol/L (21-32) Anion Gap 8 (6-14) Blood Urea Nitrogen 15 mg/dL (8-26) Creatinine 1.4 mg/dL (0.7-1.3) Estimated GFR (Cockcroft-Gault) 50.9 BUN/Creatinine Ratio 11 (6-20) Glucose Level 97 mg/dL (70-99) Calcium Level 8.5 mg/dL (8.5-10.1) Total Bilirubin 0.4 mg/dL (0.2-1.0) Aspartate Amino Transf (AST/SGOT) 13 U/L (15-37) Alanine Aminotransferase (ALT/SGPT) 20 U/L (16-63) Alkaline Phosphatase 81 U/L (46-116) Troponin I High Sensitivity 9 ng/L (4-75) Total Protein 7.2 g/dL (6.4-8.2) Albumin 3.5 g/dL (3.4-5.0) Albumin/Globulin Ratio 0.9 (1.0-1.7) VTE Prophylaxis Ordered VTE Prophylaxis Devices: Yes VTE Pharmacological Prophylaxi: Yes Assessment/Plan Assessment/Plan SIRS with organ dysfunction, tachycardia and tachypnea acute hypoxia and hypercarbic respiratory failure COPD with acute exacerbation, abx, nebs, steroid, tobacco use disorder obese, BMI 30.7, was 33, 2 years ago on admit here CKD 3, had worse renal fxn on last admit anxiety, depression, insmonia, cymbalta, trazodone Justifications for Admission Other Justification JOANNA BAER MD Feb 14, 2022 22:56
[2022-02-14] MEDS ORDERED: traMADol 50 MG TABLET PO PRN (23:00)
[2022-02-14] MEDS ORDERED: CODEINE SULFATE 30 MG TABLET. PO PRN (23:00)
[2022-02-14] MEDS ORDERED: guaiFENesin DM 200MG/20MG 10 ML SYRUP PO PRN (23:00)
[2022-02-14] MEDS ORDERED: DOXYCYCLINE HYCLATE 100 MG TABLET PO ONE (23:00)
[2022-02-14 23:20] VITALS: BP 133/80
[2022-02-14] MEDS ORDERED: PROAIR RESPICL90 MCG INH (23:43)
[2022-02-15] MEDS ORDERED: methylPREDNISolone SOD SUCC PF 125 MG/2 ML VIAL. IV ONE
[2022-02-15] MEDS ORDERED: IPRATRPIUM/ALBUTEROL 0.5/2.5MG 3 ML NEBU. NEB ONE
[2022-02-15] MEDS: GABAPENTIN 100 MG CAPSULE. PO SCH ×2 (00:27→09:03)
[2022-02-15 03:00] VITALS: BP 136/80
--- NOTE | 2022-02-15 04:04 | EKG ---
[facility] [address] [place] [address] Test Date: 2022-02-14 Test Time: 20:29:31 Pat Name: JOZEF CORADO Department: Room: [facility] Gender: M Facility Practice Specialist: : [id number] Requested By: STAFF NON Order Number: [id number] Reading MD: Estiven Beckham Measurements Intervals [place] Rate: 71 P: 56 [place]: 136 QRS: -79 QRSD: 124 T: 24 QT: 412 QTc: 453 Interpretive Statements SINUS RHYTHM ABNORMAL LEFT AXIS DEVIATION LEFT ANTERIOR FASCICULAR BLOCK Electronically Signed On 02-19-2022 17:45:01 CDT by Estiven Beckham
[2022-02-15 07:00] VITALS: BP 112/58
[2022-02-15] MEDS: IPRATRPIUM/ALBUTEROL 0.5/2.5MG 3 ML NEBU. NEB SCH ×4 (07:49→21:16)
[2022-02-15] MEDS ORDERED: traZODone 50 MG TABLET. PO SCH (09:00)
[2022-02-15] MEDS: DOXYCYCLINE HYCLATE 100 MG TABLET PO SCH ×2 (09:03→20:31)
[2022-02-15] MEDS: methylPREDNISolone SOD SUCC PF 125 MG/2 ML VIAL. IV SCH ×2 (09:03→20:30)
[2022-02-15] MEDS: DULoxetine HCL 30 MG CAPSULE.DR PO SCH (09:03)
[2022-02-15] MEDS ORDERED: ATOR40TA59 PO (10:31)
[2022-02-15] MEDS ORDERED: FLUT1BLS3 IH (10:31)
[2022-02-15] MEDS ORDERED: ALBU2.5V8 IH (10:31)
[2022-02-15] MEDS ORDERED: AZEL137S3 NS (10:35)
[2022-02-15 11:00] VITALS: BP_SYST 112; BP_SYST 130; BP_SYST 149; BP_DIAS 58; BP_DIAS 61; BP_DIAS 74
--- NOTE | 2022-02-15 13:00 | PDOC ---
[employer] PROGRESS NOTE Date of Service DOS: DATE: 02/15/22 TIME: 12:59 Chief Complaint Chief Complaint Respiratory failure COPD Continued tobacco abuse Hypoxia Bronchitis Clinical pneumonia HTN Pulmonary: COPD Psych: Anxiety, Depression Musculoskeletal: low back pain, Osteoarthritis History of Present Illness History of Present Illness 02/15/2022 Patient seen and examined Discussed with RN Chart reviewed Discussed with his girlfriend Sarah He still has a harsh cough and is weak and wheezing We will continue current therapy Vitals/I&O Vitals/I&O: Vital Signs Date Time Temp Pulse Resp B/P (MAP) Pulse Ox O2 Delivery O2 Flow Rate FiO2 02/15/22 11:00 97.9 82 20 130/74 (92) 95 Room Air 97.9 02/14/22 23:07 2.0 I & O 02/14/22 02/14/22 02/15/22 15:00 23:00 07:00 Intake Total 0 ml 200 ml Balance 0 ml 200 ml Physical Exam General: Alert, Cooperative, moderate distress Lungs: Wheezing, Crackles Abdomen: Normal bowel sounds, Soft (obese, abd) Extremities: No clubbing, Normal pulses Skin: No rashes Labs Labs: Laboratory Tests Test 02/14/22 20:16 White Blood Count 10.5 x10^3/uL (4.0-11.0) Red Blood Count 5.07 x10^6/uL (4.30-5.70) Hemoglobin 14.3 g/dL (13.0-17.5) Hematocrit 43.5 % (39.0-53.0) Mean Corpuscular Volume 86 fL (79-100) Mean Corpuscular Hemoglobin 28 pg (25-35) Mean Corpuscular Hemoglobin Concent 33 g/dL (31-37) Red Cell Distribution Width 14.6 % (11.5-14.5) Platelet Count 258 x10^3/uL (140-400) Neutrophils (%) (Auto) 73 % (31-73) Lymphocytes (%) (Auto) 15 % (24-48) Monocytes (%) (Auto) 9 % (0-9) Eosinophils (%) (Auto) 2 % (0-3) Basophils (%) (Auto) 1 % (0-3) Neutrophils # (Auto) 7.7 x10^3/uL (1.8-7.7) Lymphocytes # (Auto) 1.5 x10^3/uL (1.0-4.8) Monocytes # (Auto) 1.0 x10^3/uL (0.0-1.1) Eosinophils # (Auto) 0.2 x10^3/uL (0.0-0.7) Basophils # (Auto) 0.1 x10^3/uL (0.0-0.2) D-Dimer (Kimberley) 1.18 ug/mlFEU (0.00-0.50) Sodium Level 140 mmol/L (136-145) Potassium Level 4.5 mmol/L (3.5-5.1) Chloride Level 103 mmol/L (98-107) Carbon Dioxide Level 29 mmol/L (21-32) Anion Gap 8 (6-14) Blood Urea Nitrogen 15 mg/dL (8-26) Creatinine 1.4 mg/dL (0.7-1.3) Estimated GFR (Cockcroft-Gault) 50.9 BUN/Creatinine Ratio 11 (6-20) Glucose Level 97 mg/dL (70-99) Calcium Level 8.5 mg/dL (8.5-10.1) Total Bilirubin 0.4 mg/dL (0.2-1.0) Aspartate Amino Transf (AST/SGOT) 13 U/L (15-37) Alanine Aminotransferase (ALT/SGPT) 20 U/L (16-63) Alkaline Phosphatase 81 U/L (46-116) Troponin I High Sensitivity 9 ng/L (4-75) Total Protein 7.2 g/dL (6.4-8.2) Albumin 3.5 g/dL (3.4-5.0) Albumin/Globulin Ratio 0.9 (1.0-1.7) Assessment and Plan Assessmemt and Plan Problems Medical Problems: (1) COPD exacerbation Status: Acute Respiratory failure COPD Continued tobacco abuse Hypoxia Bronchitis Clinical pneumonia HTN Pulmonary: COPD Psych: Anxiety, Depression Musculoskeletal: low back pain, Osteoarthritis Plan IV antibiotics Oxygen per nasal cannula DuoNebs Steroids Home meds DVT prophylaxis Full code Comment Review of Relevant I have reviewed the following items naila (where applicable) has been applied. Medications: Current Medications Medications (Trade) Dose Ordered Sig/Cyndee Route PRN Reason Start Time Stop Time Status Last Admin Dose Admin Albuterol/ Ipratropium (Duoneb) 3 ml 1X ONCE NEB 02/14/22 20:30 02/14/22 20:31 DC 02/14/22 21:05 Methylprednisolone Sodium Succinate (SOLU-Medrol 125MG VIAL) 125 mg 1X ONCE IV 02/14/22 20:30 02/14/22 20:31 DC 02/14/22 20:24 Ceftriaxone Sodium (Rocephin) 1 gm 1X ONCE IVP 02/14/22 21:30 02/14/22 21:31 DC 02/14/22 22:04 Methylprednisolone Sodium Succinate (SOLU-Medrol 125MG VIAL) 125 mg 1X ONCE IV 02/15/22 00:00 02/15/22 00:01 DC 02/15/22 00:27 Doxycycline Hyclate (Vibra-Tab) 100 mg 1X ONCE PO 02/14/22 23:00 02/14/22 23:01 DC 02/15/22 00:27 Doxycycline Hyclate (Vibra-Tab) 100 mg BID PO 02/15/22 09:00 02/15/22 09:03 Methylprednisolone Sodium Succinate (SOLU-Medrol 125MG VIAL) 125 mg Q12HR IV 02/15/22 09:00 02/15/22 09:03 Albuterol/ Ipratropium (Duoneb) 3 ml Q4HRS W/A NEB 02/15/22 06:00 02/15/22 07:49 Amlodipine Besylate (Norvasc) 5 mg DAILY PO 02/15/22 09:00 02/15/22 09:04 Gabapentin (Neurontin) 100 mg TID PO 02/14/22 23:00 02/15/22 09:03 Trazodone HCl (Desyrel) 50 mg DAILY PO 02/15/22 09:00 02/15/22 09:04 Duloxetine HCl (Cymbalta) 30 mg DAILY PO 02/15/22 09:00 02/15/22 09:03 Justifications for Admission Other Justification RIDGE NG III DO Feb 15, 2022 13:00
[2022-02-15 15:00] VITALS: BP 114/68
--- NOTE | 2022-02-15 15:21 | PDOC ---
PULMONARY PROGRESS NOTES DATE: 02/15/22 TIME: 15:21 Vitals Vital Signs Date Time Temp Pulse Resp B/P (MAP) Pulse Ox O2 Delivery O2 Flow Rate FiO2 02/15/22 11:00 97.9 82 20 130/74 (92) 95 Room Air 97.9 02/14/22 23:07 2.0 Lungs: Wheezing, Crackles Labs Laboratory Tests Test 02/14/22 20:16 White Blood Count 10.5 x10^3/uL (4.0-11.0) Red Blood Count 5.07 x10^6/uL (4.30-5.70) Hemoglobin 14.3 g/dL (13.0-17.5) Hematocrit 43.5 % (39.0-53.0) Mean Corpuscular Volume 86 fL (79-100) Mean Corpuscular Hemoglobin 28 pg (25-35) Mean Corpuscular Hemoglobin Concent 33 g/dL (31-37) Red Cell Distribution Width 14.6 % (11.5-14.5) Platelet Count 258 x10^3/uL (140-400) Neutrophils (%) (Auto) 73 % (31-73) Lymphocytes (%) (Auto) 15 % (24-48) Monocytes (%) (Auto) 9 % (0-9) Eosinophils (%) (Auto) 2 % (0-3) Basophils (%) (Auto) 1 % (0-3) Neutrophils # (Auto) 7.7 x10^3/uL (1.8-7.7) Lymphocytes # (Auto) 1.5 x10^3/uL (1.0-4.8) Monocytes # (Auto) 1.0 x10^3/uL (0.0-1.1) Eosinophils # (Auto) 0.2 x10^3/uL (0.0-0.7) Basophils # (Auto) 0.1 x10^3/uL (0.0-0.2) D-Dimer (Kimberley) 1.18 ug/mlFEU (0.00-0.50) Sodium Level 140 mmol/L (136-145) Potassium Level 4.5 mmol/L (3.5-5.1) Chloride Level 103 mmol/L (98-107) Carbon Dioxide Level 29 mmol/L (21-32) Anion Gap 8 (6-14) Blood Urea Nitrogen 15 mg/dL (8-26) Creatinine 1.4 mg/dL (0.7-1.3) Estimated GFR (Cockcroft-Gault) 50.9 BUN/Creatinine Ratio 11 (6-20) Glucose Level 97 mg/dL (70-99) Calcium Level 8.5 mg/dL (8.5-10.1) Total Bilirubin 0.4 mg/dL (0.2-1.0) Aspartate Amino Transf (AST/SGOT) 13 U/L (15-37) Alanine Aminotransferase (ALT/SGPT) 20 U/L (16-63) Alkaline Phosphatase 81 U/L (46-116) Troponin I High Sensitivity 9 ng/L (4-75) Total Protein 7.2 g/dL (6.4-8.2) Albumin 3.5 g/dL (3.4-5.0) Albumin/Globulin Ratio 0.9 (1.0-1.7) Laboratory Tests Test 02/14/22 20:16 White Blood Count 10.5 x10^3/uL (4.0-11.0) Red Blood Count 5.07 x10^6/uL (4.30-5.70) Hemoglobin 14.3 g/dL (13.0-17.5) Hematocrit 43.5 % (39.0-53.0) Mean Corpuscular Volume 86 fL (79-100) Mean Corpuscular Hemoglobin 28 pg (25-35) Mean Corpuscular Hemoglobin Concent 33 g/dL (31-37) Red Cell Distribution Width 14.6 % (11.5-14.5) Platelet Count 258 x10^3/uL (140-400) Neutrophils (%) (Auto) 73 % (31-73) Lymphocytes (%) (Auto) 15 % (24-48) Monocytes (%) (Auto) 9 % (0-9) Eosinophils (%) (Auto) 2 % (0-3) Basophils (%) (Auto) 1 % (0-3) Neutrophils # (Auto) 7.7 x10^3/uL (1.8-7.7) Lymphocytes # (Auto) 1.5 x10^3/uL (1.0-4.8) Monocytes # (Auto) 1.0 x10^3/uL (0.0-1.1) Eosinophils # (Auto) 0.2 x10^3/uL (0.0-0.7) Basophils # (Auto) 0.1 x10^3/uL (0.0-0.2) D-Dimer (Kimberley) 1.18 ug/mlFEU (0.00-0.50) Sodium Level 140 mmol/L (136-145) Potassium Level 4.5 mmol/L (3.5-5.1) Chloride Level 103 mmol/L (98-107) Carbon Dioxide Level 29 mmol/L (21-32) Anion Gap 8 (6-14) Blood Urea Nitrogen 15 mg/dL (8-26) Creatinine 1.4 mg/dL (0.7-1.3) Estimated GFR (Cockcroft-Gault) 50.9 BUN/Creatinine Ratio 11 (6-20) Glucose Level 97 mg/dL (70-99) Calcium Level 8.5 mg/dL (8.5-10.1) Total Bilirubin 0.4 mg/dL (0.2-1.0) Aspartate Amino Transf (AST/SGOT) 13 U/L (15-37) Alanine Aminotransferase (ALT/SGPT) 20 U/L (16-63) Alkaline Phosphatase 81 U/L (46-116) Troponin I High Sensitivity 9 ng/L (4-75) Total Protein 7.2 g/dL (6.4-8.2) Albumin 3.5 g/dL (3.4-5.0) Albumin/Globulin Ratio 0.9 (1.0-1.7) Medications Active Scripts Medications Dose Route/Sig Max Daily Dose Days Date Category Azelastine Hcl 137 Mcg/0.137 Ml [place].pump 137 Mcg NS DAILY 02/15/22 Reported Proair Hfa Inhaler (Albuterol Sulfate) 8.5 Gm Hfa.aer.ad 2 Puff IH PRN Q4-6HRS PRN 21 02/15/22 Reported Trelegy Ellipta 100-62.5-25 (Fluticasone/Umeclidin/Vilanter) 1 Each Blst.w.dev 1 Each IH DAILY 02/15/22 Reported Atorvastatin Calcium 40 Mg Tablet 1 Tab PO DAILY 02/15/22 Reported Duloxetine Hcl 60 Mg Capsule.dr 1 Cap PO DAILY 02/14/22 Reported Amlodipine Besylate 5 Mg Tablet 1 Tab PO DAILY 02/14/22 Reported Lisinopril 40 Mg Tablet 1 Tab PO DAILY 02/14/22 Reported Meloxicam 15 Mg Tablet 1 Tab PO DAILY 02/14/22 Reported Duoneb 0.5-3(2.5) Mg/3 Ml (Albuterol/Ipratropium) 3 Ml Ampul.neb 3 Ml NEB RTQID 30 11/06/19 Rx Tramadol Hcl 50 Mg Tablet 50 Mg PO DAILY PRN 04/28/14 Reported Impression . Full consult dictated Acute exacerbation of COPD Possible discharge on 424 JIGNESH BALLARD MD Feb 15, 2022 15:21
[2022-02-15 19:00] VITALS: BP 106/61
--- NOTE | 2022-02-15 20:00 | NUR ---
Patient assessed for elopement risk per elopement policy and procedure. Patient not deemed a risk.
[2022-02-15] MEDS: LACTOBACILLUS RHAMNOSUS GG 1 CAPSULE. PO SCH (20:31)
[2022-02-15] MEDS ORDERED: cefTRIAXone IV Push 1 GM VIAL. IVP SCH (21:00)
[2022-02-15 23:00] VITALS: BP 115/60
--- NOTE | 2022-02-15 23:43 | CONS ---
DATE OF CONSULTATION: 02/15/2022 ATTENDING PHYSICIAN: Daniella Villegas MD REASON FOR CONSULTATION: The patient is seen in pulmonary consultation at the request of Dr. Villegas for increasing shortness of breath. HISTORY OF PRESENT ILLNESS: The patient is a 66-year-old with a history of COPD, normally uses albuterol at home. He continues to smoke. He has not had any recent acute exacerbations of COPD, presented with increasing shortness of breath. He could not complete full sentences. In the Emergency Department, he was wheezing. He was treated, he was admitted. I was asked to see him in consultation. His chest x-ray reveals some emphysematous changes. The patient denies fever, chills, hemoptysis. No COVID-19 exposures. His white count was normal, hemoglobin and hematocrit were noted. Electrolytes were noted. D-dimer was slightly elevated. PAST MEDICAL HISTORY: Remarkable for hypertension, COPD, tobacco dependence, anxiety, depression, osteoarthritis. PAST SURGICAL HISTORY: None. FAMILY HISTORY: Hypertension. No family history of lung disorders. SOCIAL HISTORY: He smokes less than 1 pack of cigarettes a day. REVIEW OF SYSTEMS: CONSTITUTIONAL: No fever or chills. EYES: No change in visual acuity. HENT: No nasal congestion or sore throat. PULMONARY: As indicated above. CARDIOVASCULAR: No chest pain, no pressure. GASTROINTESTINAL: No nausea, vomiting, diarrhea. GENITOURINARY: No dysuria or frequency. MUSCULOSKELETAL: No localized muscle aches or joint pains. SKIN: No new skin rashes. NEUROLOGIC: No headaches, diplopia or blurred vision. ALLERGIES: No known drug allergies. CURRENT MEDICATIONS: List was reviewed. He is currently receiving ceftriaxone and doxycycline along with steroids, nebulized treatments. PHYSICAL EXAMINATION: VITAL SIGNS: Stable since admission, he has been afebrile. HEENT: Eyes: The sclerae were nonicteric. NECK: Jugular venous distention was not elevated. No lymphadenopathy. CHEST: Full expansion. LUNGS: Adequate flow with no wheezes. CARDIOVASCULAR: Regular rate and rhythm with S1, S2, no S3. ABDOMEN: Soft, nontender, nondistended. EXTREMITIES: No clubbing, cyanosis or edema. LABORATORY DATA: Chest x-ray reviewed. Chest x-ray revealed no acute infiltrates. IMPRESSION: 1. Acute exacerbation of chronic obstructive pulmonary disease. 2. Progressive dyspnea and tachypnea secondary to above. 3. Acute nonspecific bronchitis. 4. Tobacco dependent. 5. Depression. 6. Hypertension. PLAN: 1. Deescalate antibiotics. 2. Continue IV steroids. 3. Possible discharge tomorrow morning on 02/16. 4. The patient is to follow up with me in the office. 5. Outpatient pulmonary function testing and CT chest. I do appreciate the privilege in sharing in the patient's care. REGI DR: Wagner TID: [id number]
[2022-02-16 03:00] VITALS: BP 97/55
[2022-02-16 07:00] VITALS: BP 131/55
[2022-02-16] MEDS: IPRATRPIUM/ALBUTEROL 0.5/2.5MG 3 ML NEBU. NEB SCH ×5 (07:27→22:00)
[2022-02-16] MEDS: LACTOBACILLUS RHAMNOSUS GG 1 CAPSULE. PO SCH ×2 (08:55→20:41)
[2022-02-16] MEDS: DOXYCYCLINE HYCLATE 100 MG TABLET PO SCH ×2 (08:55→20:41)
[2022-02-16] MEDS: DULoxetine HCL 30 MG CAPSULE.DR PO SCH (08:55)
[2022-02-16] MEDS: methylPREDNISolone SOD SUCC PF 125 MG/2 ML VIAL. IV SCH ×2 (08:56→20:40)
[2022-02-16] MEDS ORDERED: VANCOMYCIN PER PHARMACY MC PRN (09:00)
[2022-02-16] MEDS ORDERED: VANCOMYCIN 2 GM in IV NORMAL SALINE 500ML BAG 500 ML IV ONE (09:00)
[2022-02-16] MEDS: cefTRIAXone IV Push 1 GM VIAL. IVP SCH (09:22)
--- NOTE | 2022-02-16 09:57 | PDOC ---
[employer] PROGRESS NOTE Date of Service DOS: DATE: 02/16/22 TIME: 09:54 Chief Complaint Chief Complaint Respiratory failure COPD Continued tobacco abuse Hypoxia Bronchitis Clinical pneumonia HTN Pulmonary: COPD Psych: Anxiety, Depression Musculoskeletal: low back pain, Osteoarthritis History of Present Illness History of Present Illness 02/16/2022 Patient seen and examined Discussed with RN Chart reviewed He now has 2 out of 4 blood cultures that are positive for gram-positive cocci I am going to go ahead and start vancomycin per pharmacy Patient also complains of some left testicular enlargement 02/15/2022 Patient seen and examined Discussed with RN Chart reviewed Discussed with his girlfriend Sarah He still has a harsh cough and is weak and wheezing We will continue current therapy Vitals/I&O Vitals/I&O: Vital Signs Date Time Temp Pulse Resp B/P (MAP) Pulse Ox O2 Delivery O2 Flow Rate FiO2 02/16/22 08:55 86 131/55 02/16/22 07:29 94 Room Air 02/16/22 07:00 98.5 18 98.5 I & O 02/15/22 02/15/22 02/16/22 15:00 23:00 07:00 Intake Total 400 ml 200 ml 390 ml Balance 400 ml 200 ml 390 ml Physical Exam General: Alert, Cooperative, moderate distress Lungs: Wheezing, Crackles Abdomen: Normal bowel sounds, Soft (obese, abd) Extremities: No clubbing, Normal pulses Skin: No rashes Assessment and Plan Assessmemt and Plan Problems Medical Problems: (1) COPD exacerbation Status: Acute Respiratory failure New Gram-positive bacteremia New left testicular mass COPD Continued tobacco abuse Hypoxia Bronchitis Clinical pneumonia HTN Pulmonary: COPD Psych: Anxiety, Depression Musculoskeletal: low back pain, Osteoarthritis Plan IV antibiotics continue Rocephin/ Doxy add vancomycin Continue steroids and nebulizers Appreciate pulmonary input Oxygen per nasal cannula Consult urology for his testicular mass Encourage p.o. intake trend labs Home meds DVT prophylaxis Full code Comment Review of Relevant I have reviewed the following items naila (where applicable) has been applied. Medications: Current Medications Medications (Trade) Dose Ordered Sig/Cyndee Route PRN Reason Start Time Stop Time Status Last Admin Dose Admin Lactobacillus Rhamnosus (Culturelle) 1 cap BID PO 02/15/22 21:00 02/16/22 08:55 Ceftriaxone Sodium (Rocephin) 1 gm Q24H IVP 02/16/22 09:00 02/16/22 09:22 Vancomycin HCl 2 gm/Sodium Chloride 500 ml @ 250 mls/hr 1X ONCE IV 02/16/22 09:00 02/16/22 10:59 02/16/22 09:22 Justifications for Admission Other Justification RIDGE NG III DO Feb 16, 2022 09:57
[2022-02-16 10:01] LABS: CALCIUM 8.2 mg/dL (8.5-10.1); CREATININE 1.8 mg/dL (0.7-1.3); GFR 38.1; POTASSIUM 4.7 mmol/L (3.5-5.1)
[2022-02-16 11:00] VITALS: BP 105/49
--- NOTE | 2022-02-16 11:46 | PDOC ---
PULMONARY PROGRESS NOTES DATE: 02/16/22 TIME: 11:45 Subjective Patient continues to wheeze, short of breath, no hemoptysis Vitals Vital Signs Date Time Temp Pulse Resp B/P (MAP) Pulse Ox O2 Delivery O2 Flow Rate FiO2 02/16/22 11:31 95 Room Air 02/16/22 11:00 98.2 77 18 105/49 (67) 98.2 ROS: No Nausea, No Chest Pain, No Abdominal Pain, No Increase Cough General: Alert Lungs: Wheezing, Crackles Cardiovascular: S1 Abdomen: Soft Neuro Exam: Alert Extremities: No Edema Skin: Warm Labs Laboratory Tests Test 02/14/22 20:16 02/16/22 09:35 White Blood Count 10.5 x10^3/uL (4.0-11.0) Red Blood Count 5.07 x10^6/uL (4.30-5.70) Hemoglobin 14.3 g/dL (13.0-17.5) Hematocrit 43.5 % (39.0-53.0) Mean Corpuscular Volume 86 fL (79-100) Mean Corpuscular Hemoglobin 28 pg (25-35) Mean Corpuscular Hemoglobin Concent 33 g/dL (31-37) Red Cell Distribution Width 14.6 % (11.5-14.5) Platelet Count 258 x10^3/uL (140-400) Neutrophils (%) (Auto) 73 % (31-73) Lymphocytes (%) (Auto) 15 % (24-48) Monocytes (%) (Auto) 9 % (0-9) Eosinophils (%) (Auto) 2 % (0-3) Basophils (%) (Auto) 1 % (0-3) Neutrophils # (Auto) 7.7 x10^3/uL (1.8-7.7) Lymphocytes # (Auto) 1.5 x10^3/uL (1.0-4.8) Monocytes # (Auto) 1.0 x10^3/uL (0.0-1.1) Eosinophils # (Auto) 0.2 x10^3/uL (0.0-0.7) Basophils # (Auto) 0.1 x10^3/uL (0.0-0.2) D-Dimer (Kimberley) 1.18 ug/mlFEU (0.00-0.50) Sodium Level 140 mmol/L (136-145) 133 mmol/L (136-145) Potassium Level 4.5 mmol/L (3.5-5.1) 4.7 mmol/L (3.5-5.1) Chloride Level 103 mmol/L (98-107) 99 mmol/L (98-107) Carbon Dioxide Level 29 mmol/L (21-32) 24 mmol/L (21-32) Anion Gap 8 (6-14) 10 (6-14) Blood Urea Nitrogen 15 mg/dL (8-26) 33 mg/dL (8-26) Creatinine 1.4 mg/dL (0.7-1.3) 1.8 mg/dL (0.7-1.3) Estimated GFR (Cockcroft-Gault) 50.9 38.1 BUN/Creatinine Ratio 11 (6-20) Glucose Level 97 mg/dL (70-99) 340 mg/dL (70-99) Calcium Level 8.5 mg/dL (8.5-10.1) 8.2 mg/dL (8.5-10.1) Total Bilirubin 0.4 mg/dL (0.2-1.0) Aspartate Amino Transf (AST/SGOT) 13 U/L (15-37) Alanine Aminotransferase (ALT/SGPT) 20 U/L (16-63) Alkaline Phosphatase 81 U/L (46-116) Troponin I High Sensitivity 9 ng/L (4-75) Total Protein 7.2 g/dL (6.4-8.2) Albumin 3.5 g/dL (3.4-5.0) Albumin/Globulin Ratio 0.9 (1.0-1.7) Laboratory Tests Test 02/16/22 09:35 Sodium Level 133 mmol/L (136-145) Potassium Level 4.7 mmol/L (3.5-5.1) Chloride Level 99 mmol/L (98-107) Carbon Dioxide Level 24 mmol/L (21-32) Anion Gap 10 (6-14) Blood Urea Nitrogen 33 mg/dL (8-26) Creatinine 1.8 mg/dL (0.7-1.3) Estimated GFR (Cockcroft-Gault) 38.1 Glucose Level 340 mg/dL (70-99) Calcium Level 8.2 mg/dL (8.5-10.1) Medications Active Scripts Medications Dose Route/Sig Max Daily Dose Days Date Category Azelastine Hcl 137 Mcg/0.137 Ml [place].pump 137 Mcg NS DAILY 02/15/22 Reported Proair Hfa Inhaler (Albuterol Sulfate) 8.5 Gm Hfa.aer.ad 2 Puff IH PRN Q4-6HRS PRN 21 02/15/22 Reported Trelegy Ellipta 100-62.5-25 (Fluticasone/Umeclidin/Vilanter) 1 Each Blst.w.dev 1 Each IH DAILY 02/15/22 Reported Atorvastatin Calcium 40 Mg Tablet 1 Tab PO DAILY 02/15/22 Reported Duloxetine Hcl 60 Mg Capsule.dr 1 Cap PO DAILY 02/14/22 Reported Amlodipine Besylate 5 Mg Tablet 1 Tab PO DAILY 02/14/22 Reported Lisinopril 40 Mg Tablet 1 Tab PO DAILY 02/14/22 Reported Meloxicam 15 Mg Tablet 1 Tab PO DAILY 02/14/22 Reported Duoneb 0.5-3(2.5) Mg/3 Ml (Albuterol/Ipratropium) 3 Ml Ampul.neb 3 Ml NEB RTQID 30 11/06/19 Rx Tramadol Hcl 50 Mg Tablet 50 Mg PO DAILY PRN 04/28/14 Reported Impression . IMPRESSION: 1. Acute exacerbation of chronic obstructive pulmonary disease. 2. Progressive dyspnea and tachypnea secondary to above. 3. Acute nonspecific bronchitis. 4. Tobacco dependent. 5. Depression. 6. Hypertension. 7. Bacteremia Plan . Updated 02/16 Continue antibiotics for possible staph bacteremia Continue steroids Bronchodilators If cultures are negative, will discharge in the a.m. PLAN: 1. Deescalate antibiotics. 2. Continue IV steroids. 3. Possible discharge tomorrow morning on 02/16. 4. The patient is to follow up with me in the office. 5. Outpatient pulmonary function testing and CT chest. I do appreciate the privilege in sharing in the patient's care. JIGNESH BALLARD MD Feb 16, 2022 11:46
[2022-02-16] MEDS ORDERED: NICOTINE 14MG PATCH. TD PRN (12:00)
[2022-02-16 15:00] VITALS: BP 155/75
--- NOTE | 2022-02-16 15:34 | PDOC2 ---
UROLOGY CONSULT DOS: DATE: 02/16/22 TIME: 15:25 Reason for Consult: "left testicle enlargement" Chief Complaint SOA 66 year old male admitted 02/14 for worsening cough, SOA, and sputum production. Admitted for COPD excacerbation. Urology consulted today for "left testicle enlargement." On arrival to the room, patient resting in his chair. Patient states he does not feel that his testicle is enlarged but just complains of itching to the posterior left testicle. Denies fevers, chills, drainage, redness, or pain. ROS ROS: Negative except for mentioned in HPI Current Medications Current Medications Albuterol/ Ipratropium (Duoneb) 3 ml 1X ONCE NEB Last administered on 02/14/22at 21:05; Start 02/14/22 at 20:30; Stop 02/14/22 at 20:31; Status DC Methylprednisolone Sodium Succinate (SOLU-Medrol 125MG VIAL) 125 mg 1X ONCE IV Last administered on 02/14/22at 20:24; Start 02/14/22 at 20:30; Stop 02/14/22 at 20:31; Status DC Ceftriaxone Sodium (Rocephin) 1 gm 1X ONCE IVP Last administered on 02/14/22at 22:04; Start 02/14/22 at 21:30; Stop 02/14/22 at 21:31; Status DC Albuterol/ Ipratropium (Duoneb) 3 ml 1X ONCE NEB ; Start 02/14/22 at 21:30; Stop 02/14/22 at 21:31; Status Cancel Methylprednisolone Sodium Succinate (SOLU-Medrol 125MG VIAL) 125 mg 1X ONCE IV ; Start 02/14/22 at 21:30; Stop 02/14/22 at 21:31; Status Cancel Albuterol/ Ipratropium (Duoneb) 3 ml 1X ONCE NEB ; Start 02/15/22 at 00:00; Stop 02/15/22 at 00:01; Status DC Methylprednisolone Sodium Succinate (SOLU-Medrol 125MG VIAL) 125 mg 1X ONCE IV Last administered on 02/15/22at 00:27; Start 02/15/22 at 00:00; Stop 02/15/22 at 00:01; Status DC Doxycycline Hyclate (Vibra-Tab) 100 mg 1X ONCE PO Last administered on 02/15/22 00:27; Start 02/14/22 at 23:00; Stop 02/14/22 at 23:01; Status DC Doxycycline Hyclate (Vibra-Tab) 100 mg BID PO Last administered on 02/16/22 08:55; Start 02/15/22 at 09:00 Ceftriaxone Sodium (Rocephin) 1 gm Q24H IVP ; Start 02/15/22 at 21:00; Stop 02/15/22 at 15:20; Status DC Methylprednisolone Sodium Succinate (SOLU-Medrol 125MG VIAL) 125 mg Q12HR IV Last administered on 02/16/22 08:56; Start 02/15/22 at 09:00 Albuterol/ Ipratropium (Duoneb) 3 ml Q4HRS W/A NEB Last administered on 02/16/22at 11:29; Start 02/15/22 at 06:00 Guaifenesin (Robitussin Dm) 10 ml PRN Q6HRS PRN PO COUGH Last administered on 02/16/22 08:55; Start 02/14/22 at 23:00 Codeine Sulfate (Codeine) 30 mg PRN Q6HRS PRN PO MODERATE PAIN 4-6 (2nd Choice); Start 02/14/22 at 23:00 Amlodipine Besylate (Norvasc) 5 mg DAILY PO Last administered on 02/16/22 08:55; Start 02/15/22 at 09:00 Gabapentin (Neurontin) 100 mg TID PO Last administered on 02/15/22at 09:03; Start 02/14/22 at 23:00; Stop 02/15/22 at 15:26; Status DC Tramadol HCl (Ultram) 50 mg PRN DAILY PRN PO MODERATE PAIN 4-6 (1st Choice); Start 02/14/22 at 23:00 Trazodone HCl (Desyrel) 50 mg DAILY PO Last administered on 02/15/22at 09:04; Start 02/15/22 at 09:00 Duloxetine HCl (Cymbalta) 30 mg DAILY PO Last administered on 02/16/22 08:55; Start 02/15/22 at 09:00 Lactobacillus Rhamnosus (Culturelle) 1 cap BID PO Last administered on 02/16/22 08:55; Start 02/15/22 at 21:00 Ceftriaxone Sodium (Rocephin) 1 gm Q24H IVP Last administered on 02/16/22at 09:22; Start 02/16/22 at 09:00 Vancomycin HCl (Vanco Per Pharmacy) 1 each PRN DAILY PRN MC SEE COMMENTS; Start 02/16/22 at 09:00 Vancomycin HCl 2 gm/Sodium Chloride 500 ml @ 250 mls/hr 1X ONCE IV Last admin istered on 02/16/22at 09:22; Start 02/16/22 at 09:00; Stop 02/16/22 at 10:59; Status DC Nicotine (Nicoderm Cq 14mg) 1 patch PRN DAILY PRN TD SMOKING CESSATION Last administered on 02/16/22at 12:45; Start 02/16/22 at 12:00 Active Scripts Active Duoneb 0.5-3(2.5) Mg/3 Ml (Albuterol/Ipratropium) 3 Ml Ampul.neb 3 Ml NEB RTQID 30 Days Reported Azelastine Hcl 137 Mcg/0.137 Ml [place].pump 137 Mcg NS DAILY Proair Hfa Inhaler (Albuterol Sulfate) 8.5 Gm Hfa.aer.ad 2 Puff IH PRN Q4-6HRS PRN 21 Days Trelegy Ellipta 100-62.5-25 (Fluticasone/Umeclidin/Vilanter) 1 Each Blst.w.dev 1 Each IH DAILY Atorvastatin Calcium 40 Mg Tablet 1 Tab PO DAILY Duloxetine Hcl 60 Mg Capsule.dr 1 Cap PO DAILY Amlodipine Besylate 5 Mg Tablet 1 Tab PO DAILY Lisinopril 40 Mg Tablet 1 Tab PO DAILY Meloxicam 15 Mg Tablet 1 Tab PO DAILY Tramadol Hcl 50 Mg Tablet 50 Mg PO DAILY PRN Allergies: Coded Allergies: No Known Drug Allergies (Unverified , 04/28/14) Physical Examination PHYSICAL EXAMINATION: GENERAL: Gen. appearance: No acute distress. Mood/affect: Pleasant. HEENT: Head: Normocephalic, atraumatic. Airway Impairment: No. CHEST: Shape and expansion: Normal. Expansion: Normal. SKIN: General: Warm. Color: Good. GENITOURINARY:External genitalia normal in appearance. Bilateral testicles of equal size. No swelling, erythema, induration noted. On exam, posterior left testicle has what appears to be a bug in the shape of a sunflower seed latched on. NEUROLOGICAL: Mental status: Alert and oriented 3. Language: Normal. VITALS Vital Signs Date Time Temp Pulse Resp B/P (MAP) Pulse Ox O2 Delivery O2 Flow Rate FiO2 02/16/22 15:00 98.2 98 18 155/75 (101) 94 Room Air 98.2 Labs Laboratory Tests Test 02/14/22 20:16 02/16/22 09:35 White Blood Count 10.5 x10^3/uL (4.0-11.0) Red Blood Count 5.07 x10^6/uL (4.30-5.70) Hemoglobin 14.3 g/dL (13.0-17.5) Hematocrit 43.5 % (39.0-53.0) Mean Corpuscular Volume 86 fL (79-100) Mean Corpuscular Hemoglobin 28 pg (25-35) Mean Corpuscular Hemoglobin Concent 33 g/dL (31-37) Red Cell Distribution Width 14.6 % (11.5-14.5) Platelet Count 258 x10^3/uL (140-400) Neutrophils (%) (Auto) 73 % (31-73) Lymphocytes (%) (Auto) 15 % (24-48) Monocytes (%) (Auto) 9 % (0-9) Eosinophils (%) (Auto) 2 % (0-3) Basophils (%) (Auto) 1 % (0-3) Neutrophils # (Auto) 7.7 x10^3/uL (1.8-7.7) Lymphocytes # (Auto) 1.5 x10^3/uL (1.0-4.8) Monocytes # (Auto) 1.0 x10^3/uL (0.0-1.1) Eosinophils # (Auto) 0.2 x10^3/uL (0.0-0.7) Basophils # (Auto) 0.1 x10^3/uL (0.0-0.2) D-Dimer ([place]berley) 1.18 ug/mlFEU (0.00-0.50) Sodium Level 140 mmol/L (136-145) 133 mmol/L (136-145) Potassium Level 4.5 mmol/L (3.5-5.1) 4.7 mmol/L (3.5-5.1) Chloride Level 103 mmol/L (98-107) 99 mmol/L (98-107) Carbon Dioxide Level 29 mmol/L (21-32) 24 mmol/L (21-32) Anion Gap 8 (6-14) 10 (6-14) Blood Urea Nitrogen 15 mg/dL (8-26) 33 mg/dL (8-26) Creatinine 1.4 mg/dL (0.7-1.3) 1.8 mg/dL (0.7-1.3) Estimated GFR (Cockcroft-Gault) 50.9 38.1 BUN/Creatinine Ratio 11 (6-20) Glucose Level 97 mg/dL (70-99) 340 mg/dL (70-99) Calcium Level 8.5 mg/dL (8.5-10.1) 8.2 mg/dL (8.5-10.1) Total Bilirubin 0.4 mg/dL (0.2-1.0) Aspartate Amino Transf (AST/SGOT) 13 U/L (15-37) Alanine Aminotransferase (ALT/SGPT) 20 U/L (16-63) Alkaline Phosphatase 81 U/L (46-116) Troponin I High Sensitivity 9 ng/L (4-75) Total Protein 7.2 g/dL (6.4-8.2) Albumin 3.5 g/dL (3.4-5.0) Albumin/Globulin Ratio 0.9 (1.0-1.7) Laboratory Tests Test 02/16/22 09:35 Sodium Level 133 mmol/L (136-145) Potassium Level 4.7 mmol/L (3.5-5.1) Chloride Level 99 mmol/L (98-107) Carbon Dioxide Level 24 mmol/L (21-32) Anion Gap 10 (6-14) Blood Urea Nitrogen 33 mg/dL (8-26) Creatinine 1.8 mg/dL (0.7-1.3) Estimated GFR (Cockcroft-Gault) 38.1 Glucose Level 340 mg/dL (70-99) Calcium Level 8.2 mg/dL (8.5-10.1) Assessment/Plan ----Left scrotal itching Exam normal other than what appears to be a sunflower shaped bug latched onto left posterior testicle. This was removed. No redness or drainage noted after removal. Scrotal US completed. Waiting on read. I assume this will be normal as no swelling/enlargement/abnormality identified on exam. Patient with no further complaints. Call with urology questions. SULMA SCHWARZ APRN Feb 16, 2022 15:34
--- NOTE | 2022-02-16 15:35 | RAD ---
CLINICAL HISTORY: Testicular enlargement COMPARISON: None available. TECHNIQUE: Ultrasound images of the scrotum was performed with salas-scale and color doppler. FINDINGS: The right testis measures 4.1 x 3.0 x 2.6. The left testis measures 4.6 x 3.3 x 2.2. There is no intratesticular abnormality. Testicular vascularity is symmetric and within normal limit s. There is a right-sided epididymal cyst measuring 0.9 x 1.0 x 1.1 cm. There is thickening of the epidi dymis along the anterior margin of the testicles without significant hyperemia. Small bilateral hydroceles.. IMPRESSION: 1. No suspicious scrotal mass. Nodular thickening of the epididymis on the inferior margin of the rita ticles bilaterally. No significant hyperemia. Findings could represent sequela of prior epididymitis. 4-6 week follow-up ultrasound could be of benefit. Electronically signed by: Martha Conner MD (02/16/2022 3:33 PM) [facility]
--- NOTE | 2022-02-16 16:41 | NUR ---
Pharmacy Vancomycin Dosing Note S:Consulted to monitor and dose vancomycin started 02/16/22. O:JOZEF CORADO is a 66 year old M with Pneumonia . Height: 5 feet, 6 inches Weight: 105.5 kg [place] Body Weight: 63.80 Adjusted Body Weight: 80.48 Dosing Weight: Actual Other Antibiotics: Doxycycline 100mg po q12hrs LABS: Last BUN: 33 Last Creatinine: 1.8 Creatinine Clearance: 47 mL/min Last WBC: 10.5 Last Procalcitonin: Tmax (past 24 hours): 98.6 Microbiology: Gram Positive Cocci I/O: 990ml / 2 voids Drug Levels: Last level: on at Last dose given 02/16/22 at 0922 Vancomycin Dosing: Loading Dose: 2000 mg x1 Dosing Weight: Actual Target Trough: 15-20 A: Based on weight and est. CrCl: P: 1. Give Vancomycin 2000mg, followed by Vancomycin 1500 mg IV q24h. 2. Follow up Trough level on 02/18/22 at 0830. 3. Pharmacy will continue to monitor, follow and adjust therapy as needed. Sean Pennington, [facility], 02/16/22 [id number]
[2022-02-16 19:00] VITALS: BP 179/81
[2022-02-16] MEDS ORDERED: traZODone 50 MG TABLET. PO SCH (21:00)
[2022-02-16 23:00] VITALS: BP 129/68
[2022-02-17 03:00] VITALS: BP 123/70
[2022-02-17] MEDS: IPRATRPIUM/ALBUTEROL 0.5/2.5MG 3 ML NEBU. NEB SCH (06:42)
[2022-02-17 07:00] VITALS: BP 137/74
[2022-02-17] MEDS: DULoxetine HCL 30 MG CAPSULE.DR PO SCH (08:32)
[2022-02-17] MEDS: methylPREDNISolone SOD SUCC PF 125 MG/2 ML VIAL. IV SCH (08:33)
[2022-02-17] MEDS: LACTOBACILLUS RHAMNOSUS GG 1 CAPSULE. PO SCH (08:33)
[2022-02-17] MEDS: DOXYCYCLINE HYCLATE 100 MG TABLET PO SCH (08:33)
[2022-02-17] MEDS: cefTRIAXone IV Push 1 GM VIAL. IVP SCH (08:34)
--- NOTE | 2022-02-17 08:58 | PDOC ---
PULMONARY PROGRESS NOTES DATE: 02/17/22 TIME: 08:58 Subjective No overnight events No increasing wheeze feels better Vitals Vital Signs Date Time Temp Pulse Resp B/P (MAP) Pulse Ox O2 Delivery O2 Flow Rate FiO2 02/17/22 08:33 80 137/74 02/17/22 07:00 97.9 18 94 Room Air 97.9 ROS: No Nausea, No Chest Pain, No Abdominal Pain, No Increase Cough General: Alert Lungs: Wheezing, Crackles Cardiovascular: S1 Abdomen: Soft Neuro Exam: Alert Extremities: No Edema Skin: Warm Labs Laboratory Tests Test 02/16/22 09:35 Sodium Level 133 mmol/L (136-145) Potassium Level 4.7 mmol/L (3.5-5.1) Chloride Level 99 mmol/L (98-107) Carbon Dioxide Level 24 mmol/L (21-32) Anion Gap 10 (6-14) Blood Urea Nitrogen 33 mg/dL (8-26) Creatinine 1.8 mg/dL (0.7-1.3) Estimated GFR (Cockcroft-Gault) 38.1 Glucose Level 340 mg/dL (70-99) Calcium Level 8.2 mg/dL (8.5-10.1) Laboratory Tests Test 02/16/22 09:35 Sodium Level 133 mmol/L (136-145) Potassium Level 4.7 mmol/L (3.5-5.1) Chloride Level 99 mmol/L (98-107) Carbon Dioxide Level 24 mmol/L (21-32) Anion Gap 10 (6-14) Blood Urea Nitrogen 33 mg/dL (8-26) Creatinine 1.8 mg/dL (0.7-1.3) Estimated GFR (Cockcroft-Gault) 38.1 Glucose Level 340 mg/dL (70-99) Calcium Level 8.2 mg/dL (8.5-10.1) Medications Active Scripts Medications Dose Route/Sig Max Daily Dose Days Date Category Azelastine Hcl 137 Mcg/0.137 Ml [place].pump 137 Mcg NS DAILY 02/15/22 Reported Proair Hfa Inhaler (Albuterol Sulfate) 8.5 Gm Hfa.aer.ad 2 Puff IH PRN Q4-6HRS PRN 21 02/15/22 Reported Trelegy Ellipta 100-62.5-25 (Fluticasone/Umeclidin/Vilanter) 1 Each Blst.w.dev 1 Each IH DAILY 02/15/22 Reported Atorvastatin Calcium 40 Mg Tablet 1 Tab PO DAILY 02/15/22 Reported Duloxetine Hcl 60 Mg Capsule.dr 1 Cap PO DAILY 02/14/22 Reported Amlodipine Besylate 5 Mg Tablet 1 Tab PO DAILY 02/14/22 Reported Lisinopril 40 Mg Tablet 1 Tab PO DAILY 02/14/22 Reported Meloxicam 15 Mg Tablet 1 Tab PO DAILY 02/14/22 Reported Duoneb 0.5-3(2.5) Mg/3 Ml (Albuterol/Ipratropium) 3 Ml Ampul.neb 3 Ml NEB RTQID 30 11/06/19 Rx Tramadol Hcl 50 Mg Tablet 50 Mg PO DAILY PRN 04/28/14 Reported Impression . IMPRESSION: 1. Acute exacerbation of chronic obstructive pulmonary disease. 2. Progressive dyspnea and tachypnea secondary to above. 3. Acute nonspecific bronchitis. 4. Tobacco dependent. 5. Depression. 6. Hypertension. 7. Bacteremia, staph hominis Plan . Updated 02/17 Bacteremia is related to contamination, discussed with ID, patient to go home after ID sees patient Given a follow-up appointment with JIGNESH Martinez MD Feb 17, 2022 08:58
[2022-02-17] MEDS ORDERED: VANCOMYCIN 1.5 GM in IV NORMAL SALINE 500ML BAG 500 ML IV SCH (09:00)
[2022-02-17] MEDS ORDERED: DOXY100T PO (10:22)
[2022-02-17] MEDS ORDERED: METH4TAB2 PO (10:22)
[2022-02-17] MEDS ORDERED: AMOX1TAB61 PO (10:22)
[2022-02-17 11:00] VITALS: BP 159/80
--- NOTE | 2022-02-17 12:00 | PN ---
PROGRESS NOTES Date of Service DATE: 02/17/22 TIME: 11:58 Subjective Subjective Pt denies any scrotal or testicular pain, swelling, or abnormality. Objective Objective Vital Signs Date Time Temp Pulse Resp B/P (MAP) Pulse Ox O2 Delivery O2 Flow Rate FiO2 02/17/22 08:33 80 137/74 02/17/22 08:00 Room Air 02/17/22 07:00 97.9 18 94 97.9 02/14/22 23:07 2.0 Intake and Output 02/17/22 07:00 Intake Total 780 ml Balance 780 ml Intake Oral 780 ml # Voids 1 # Bowel Movements 1 Physical Exam Physical Exam NAD unlabored respirations AOx3 COMMENT FINDINGS: The right testis measures 4.1 x 3.0 x 2.6. The left testis measures 4.6 x 3.3 x 2.2. There is no intratesticular abnormality. Testicular vascularity is symmetric and within normal limits. There is a right-sided epididymal cyst measuring 0.9 x 1.0 x 1.1 cm. There is thickening of the epididymis along the anterior margin of the testicles without significant hyperemia. Small bilateral hydroceles.. IMPRESSION: 1. No suspicious scrotal mass. Nodular thickening of the epididymis on the inferior margin of the testicles bilaterally. No significant hyperemia. Findings could represent sequela of prior epididymitis. 4-6 week follow-up ultrasound could be of benefit. Electronically signed by: Martha Conner MD (02/16/2022 3:33 PM) [facility] Diagnosis DIAGNOSIS Report of scrotal enlargement, pt denies this Scrotal ultrasound as above. No acute findings, no urologic intervention necessary. Urology will sign off, call with questions. PROBLEM LIST Problems Medical Problems: (1) COPD exacerbation Status: Acute Assessment Assessment Problems Medical Problems: (1) COPD exacerbation Status: Acute Comment Review of Relevant I have reviewed the following items naila (where applicable) has been applied. Labs Laboratory Tests Test 02/16/22 09:35 02/17/22 06:54 Sodium Level 133 mmol/L (136-145) Potassium Level 4.7 mmol/L (3.5-5.1) Chloride Level 99 mmol/L (98-107) Carbon Dioxide Level 24 mmol/L (21-32) Anion Gap 10 (6-14) Blood Urea Nitrogen 33 mg/dL (8-26) Creatinine 1.8 mg/dL (0.7-1.3) Estimated GFR (Cockcroft-Gault) 38.1 Glucose Level 340 mg/dL (70-99) Calcium Level 8.2 mg/dL (8.5-10.1) Procalcitonin 0.17 ng/mL (0.00-0.10) Laboratory Tests Test 02/17/22 06:54 Procalcitonin 0.17 ng/mL (0.00-0.10) Microbiology 02/14/22 Blood Culture - Final, Complete Staphylococcus Hominis Staphylococcus Hominis#2 Medications Current Medications Albuterol/ Ipratropium (Duoneb) 3 ml 1X ONCE NEB Last administered on 02/14/22at 21:05; Start 02/14/22 at 20:30; Stop 02/14/22 at 20:31; Status DC Methylprednisolone Sodium Succinate (SOLU-Medrol 125MG VIAL) 125 mg 1X ONCE IV Last administered on 02/14/22at 20:24; Start 02/14/22 at 20:30; Stop 02/14/22 at 20:31; Status DC Ceftriaxone Sodium (Rocephin) 1 gm 1X ONCE IVP Last administered on 02/14/22at 22:04; Start 02/14/22 at 21:30; Stop 02/14/22 at 21:31; Status DC Albuterol/ Ipratropium (Duoneb) 3 ml 1X ONCE NEB ; Start 02/14/22 at 21:30; Stop 02/14/22 at 21:31; Status Cancel Methylprednisolone Sodium Succinate (SOLU-Medrol 125MG VIAL) 125 mg 1X ONCE IV ; Start 02/14/22 at 21:30; Stop 02/14/22 at 21:31; Status Cancel Albuterol/ Ipratropium (Duoneb) 3 ml 1X ONCE NEB ; Start 02/15/22 at 00:00; Stop 02/15/22 at 00:01; Status DC Methylprednisolone Sodium Succinate (SOLU-Medrol 125MG VIAL) 125 mg 1X ONCE IV Last administered on 02/15/22at 00:27; Start 02/15/22 at 00:00; Stop 02/15/22 at 00:01; Status DC Doxycycline Hyclate (Vibra-Tab) 100 mg 1X ONCE PO Last administered on 02/15/22 00:27; Start 02/14/22 at 23:00; Stop 02/14/22 at 23:01; Status DC Doxycycline Hyclate (Vibra-Tab) 100 mg BID PO Last administered on 02/17/22 08:33; Start 02/15/22 at 09:00 Ceftriaxone Sodium (Rocephin) 1 gm Q24H IVP ; Start 02/15/22 at 21:00; Stop 02/15/22 at 15:20; Status DC Methylprednisolone Sodium Succinate (SOLU-Medrol 125MG VIAL) 125 mg Q12HR IV Last administered on 02/17/22 08:33; Start 02/15/22 at 09:00 Albuterol/ Ipratropium (Duoneb) 3 ml Q4HRS W/A NEB Last administered on 02/17/22 06:42; Start 02/15/22 at 06:00 Guaifenesin (Robitussin Dm) 10 ml PRN Q6HRS PRN PO COUGH Last administered on 02/16/22 08:55; Start 02/14/22 at 23:00 Codeine Sulfate (Codeine) 30 mg PRN Q6HRS PRN PO MODERATE PAIN 4-6 (2nd Choice); Start 02/14/22 at 23:00 Amlodipine Besylate (Norvasc) 5 mg DAILY PO Last administered on 02/17/22 08:33; Start 02/15/22 at 09:00 Gabapentin (Neurontin) 100 mg TID PO Last administered on 02/15/22 09:03; Start 02/14/22 at 23:00; Stop 02/15/22 at 15:26; Status DC Tramadol HCl (Ultram) 50 mg PRN DAILY PRN PO MODERATE PAIN 4-6 (1st Choice); Start 02/14/22 at 23:00 Trazodone HCl (Desyrel) 50 mg DAILY PO Last administered on 02/15/22at 09:04; Start 02/15/22 at 09:00; Stop 02/16/22 at 15:54; Status DC Duloxetine HCl (Cymbalta) 30 mg DAILY PO Last administered on 02/17/22 08:32; Start 02/15/22 at 09:00 Lactobacillus Rhamnosus (Culturelle) 1 cap BID PO Last administered on 02/17/22 08:33; Start 02/15/22 at 21:00 Ceftriaxone Sodium (Rocephin) 1 gm Q24H IVP Last administered on 02/17/22at 08:34; Start 02/16/22 at 09:00 Vancomycin HCl (Vanco Per Pharmacy) 1 each PRN DAILY PRN MC SEE COMMENTS Last administered on 02/16/22at 16:38; Start 02/16/22 at 09:00 Vancomycin HCl 2 gm/Sodium Chloride 500 ml @ 250 mls/hr 1X ONCE IV Last administered on 02/16/22at 09:22; Start 02/16/22 at 09:00; Stop 02/16/22 at 10:59; Status DC Nicotine (Nicoderm Cq 14mg) 1 patch PRN DAILY PRN TD SMOKING CESSATION Last administered on 02/16/22at 12:45; Start 02/16/22 at 12:00 Trazodone HCl (Desyrel) 50 mg QHS PO Last administered on 02/16/22at 20:41; Start 02/16/22 at 21:00 Vancomycin HCl 1.5 gm/Sodium Chloride 500 ml @ 250 mls/hr Q24H IV Last administered on 02/17/22at 08:34; Start 02/17/22 at 09:00 Vancomycin HCl (Vancomycin Trough Level) 1 each 1X ONCE [facility] ; Start 02/18/22 at 08:30; Stop 02/18/22 at 08:31 Active Scripts Active Augmentin 875-125 Tablet (Amoxicillin/Potassium Clav) 1 Each Tablet 1 Tab PO BID 7 Days Medrol (Methylprednisolone) 4 Mg Tab.ds.pk 1 Pkg PO UD Doxycycline Hyclate 100 Mg Tablet 100 Mg PO BID 7 Days Duoneb 0.5-3(2.5) Mg/3 Ml (Albuterol/Ipratropium) 3 Ml Ampul.neb 3 Ml NEB RTQID 30 Days Reported Azelastine Hcl 137 Mcg/0.137 Ml [place].pump 137 Mcg NS DAILY Proair Hfa Inhaler (Albuterol Sulfate) 8.5 Gm Hfa.aer.ad 2 Puff IH PRN Q4-6HRS PRN 21 Days Trelegy Ellipta 100-62.5-25 (Fluticasone/Umeclidin/Vilanter) 1 Each Blst.w.dev 1 Each IH DAILY Atorvastatin Calcium 40 Mg Tablet 1 Tab PO DAILY Duloxetine Hcl 60 Mg Capsule.dr 1 Cap PO DAILY Amlodipine Besylate 5 Mg Tablet 1 Tab PO DAILY Lisinopril 40 Mg Tablet 1 Tab PO DAILY Meloxicam 15 Mg Tablet 1 Tab PO DAILY Tramadol Hcl 50 Mg Tablet 50 Mg PO DAILY PRN Vitals/I & O Vital Sign - Last 24 Hours 02/16/22 02/16/22 02/16/22 02/16/22 15:00 15:46 18:17 19:00 Temp 98.2 98.0 98.2 98.0 Pulse 98 100 Resp 22 B/P (MAP) 155/75 (101) 179/81 (113) Pulse Ox 94 94 94 O2 Delivery Room Air Room Air Room Air Room Air 02/16/22 02/16/22 02/17/22 02/17/22 19:05 23:00 03:00 06:42 Temp 97.8 98.0 97.8 98.0 Pulse 76 80 Resp 20 18 B/P (MAP) 129/68 (88) 123/70 (87) Pulse Ox 92 92 95 O2 Delivery Room Air Room Air Room Air Room Air 02/17/22 02/17/22 02/17/22 07:00 08:00 08:33 Temp 97.9 97.9 Pulse 80 80 Resp 18 B/P (MAP) 137/74 (95) 137/74 Pulse Ox 94 O2 Delivery Room Air Room Air Intake and Output 02/16/22 02/16/22 02/17/22 15:00 23:00 07:00 Intake Total 360 ml 180 ml 240 ml Balance 360 ml 180 ml 240 ml RAYNE GRIDER Feb 17, 2022 12:00
--- NOTE | 2022-02-17 13:43 | PDOC ---
[facility] PROGRESS NOTE Date of Service DOS: DATE: 02/17/22 TIME: 13:43 Chief Complaint Chief Complaint Respiratory failure COPD Continued tobacco abuse Hypoxia Bronchitis Clinical pneumonia HTN Pulmonary: COPD Psych: Anxiety, Depression Musculoskeletal: low back pain, Osteoarthritis History of Present Illness History of Present Illness 03/19/2022 Patient seen and examined Discussed with pulmonary medicine Discussed with case management Discussed with RN Chart reviewed We will go ahead and discharge this afternoon 02/16/2022 Patient seen and examined Discussed with RN Chart reviewed He now has 2 out of 4 blood cultures that are positive for gram-positive cocci I am going to go ahead and start vancomycin per pharmacy Patient also complains of some left testicular enlargement 02/15/2022 Patient seen and examined Discussed with RN Chart reviewed Discussed with his girlfriend Sarah He still has a harsh cough and is weak and wheezing We will continue current therapy Vitals/I&O Vitals/I&O: Vital Signs Date Time Temp Pulse Resp B/P (MAP) Pulse Ox O2 Delivery O2 Flow Rate FiO2 02/17/22 11:00 97.9 95 20 159/80 (106) 94 Room Air 97.9 I & O 02/16/22 02/16/22 02/17/22 15:00 23:00 07:00 Intake Total 360 ml 180 ml 240 ml Balance 360 ml 180 ml 240 ml Physical Exam General: Alert, Cooperative, moderate distress Lungs: Wheezing, Crackles Abdomen: Normal bowel sounds, Soft (obese, abd) Extremities: No clubbing, Normal pulses Skin: No rashes Labs Labs: Laboratory Tests Test 02/17/22 06:54 Procalcitonin 0.17 ng/mL (0.00-0.10) Assessment and Plan Assessmemt and Plan Problems Medical Problems: (1) COPD exacerbation Status: Acute Respiratory failure New Gram-positive bacteremia New left testicular mass COPD Continued tobacco abuse Hypoxia Bronchitis Clinical pneumonia HTN Pulmonary: COPD Psych: Anxiety, Depression Musculoskeletal: low back pain, Osteoarthritis Plan Probable discharge this afternoon For now continue the following: IV antibiotics continue Rocephin/ Doxy add vancomycin Continue steroids and nebulizers Appreciate pulmonary input Oxygen per nasal cannula Consult urology for his testicular mass Encourage p.o. intake trend labs Home meds DVT prophylaxis Full code Comment Review of Relevant I have reviewed the following items naila (where applicable) has been applied. Medications: Current Medications Medications (Trade) Dose Ordered Sig/Cyndee Route PRN Reason Start Time Stop Time Status Last Admin Dose Admin Trazodone HCl (Desyrel) 50 mg QHS PO 02/16/22 21:00 02/16/22 20:41 Vancomycin HCl 1.5 gm/Sodium Chloride 500 ml @ 250 mls/hr Q24H IV 02/17/22 09:00 02/17/22 13:26 DC 02/17/22 08:34 Justifications for Admission Other Justification RIDGE NG III DO Feb 17, 2022 13:43
--- NOTE | 2022-02-17 14:38 | NUR ---
SS following for discharge planning. SS reviewed pt chart and discussed with pt RN. Pt is from home and is currently on room air. Discharge order on the chart for home with self care.
--- NOTE | 2022-02-17 14:44 | NUR ---
Discharge Note: JOZEF CORADO [address] Discharge instructions and discharge home medications reviewed with Patient and a copy given. All questions have been answered and understanding verbalized. The following instructions and handouts were given: discharge instructions, new prescriptions, education and follow up recommendations. Discontinued lines and drains: Peripheral IV discontinued intact. Patient discharged to Home or Self Care with Family Member via [facility] off unit by community development planner.
--- NOTE | 2022-02-17 19:48 | DS ---
DATE OF DISCHARGE: 02/17/2022 ADMISSION DIAGNOSES: Respiratory failure with chronic obstructive pulmonary disease and pneumonia. DISCHARGE DIAGNOSES: Resolving respiratory failure, chronic obstructive pulmonary disease, resolving pneumonia, resolving bronchitis, depression, hypertension, bacteremia (it was Staph hominis, which was probably skin audelia). CONSULTATIONS: 1. Urology for a left testicular enlargement (he denied that he had the left testicular enlargement when they came to see him, but he showed it to me yesterday. I suspect it is a small cystocele). 2. Julio Bah MD PROCEDURES: None. HOSPITAL COURSE: The patient is a pleasant middle-aged male who presented with respiratory failure. We admitted him, gave him IV antibiotics, breathing treatments, steroids, oxygen. The above consults were obtained. Today, I saw and examined him. He is back to his baseline and wants to go home. We plan to discharge. DISPOSITION: Home. ACTIVITY: As tolerated. DIET: Low sodium. DISCHARGE MEDICATIONS: Please see the MRAD. Augmentin 875 mg b.i.d., doxycycline 100 mg b.i.d., Medrol Dosepak, albuterol, amlodipine 5 mg a day, atorvastatin 40 mg a day, duloxetine 60 mg a day, Trelegy Ellipta 100-62.5-25 mcg 1 tablet daily, albuterol, lisinopril 40 mg a day, meloxicam 15 mg daily, and Ultram 50 mg q. 6 hours p.r.n. Total time [address]: Antonio TID: [id number]
--- NOTE | 2022-02-17 22:19 | CONS ---
DATE OF CONSULTATION: 02/17/2022 REQUESTING PHYSICIAN: Dr. Hood. REASON FOR CONSULTATION: Blood culture positive. HISTORY OF PRESENT ILLNESS: This is a 66-year-old gentleman who came in with shortness of breath, cough, sputum production, wheezing. The patient was diagnosed with COPD exacerbation. The patient also has some scrotal swelling. The patient has been treated with Rocephin, vancomycin, doxycycline and the patient is ready to be discharged with that. At that point, blood culture turned positive 2/4 with Staphylococcus hominis two different species, hence consultation. The patient is feeling good. The patient denies any nausea, vomiting, diarrhea, chest pain, shortness of breath, abdominal pain. He is ready to go home. He says he has only foreign body he has in the leg. Otherwise, there is no other foreign body. PAST MEDICAL HISTORY: Positive for COPD, history of anxiety, depression, osteoarthritis, hypertension, obesity. SOCIAL HISTORY: Positive for smoking. No alcohol use or drug use. ALLERGIES: No known drug allergies. CURRENT MEDICATIONS: Reviewed. REVIEW OF SYSTEMS: As in HPI. All other systems reviewed and are negative. PHYSICAL EXAMINATION: GENERAL: Alert, oriented gentleman, not in distress. VITAL SIGNS: Stable, afebrile. HEENT: NAD. NECK: Supple, no JVP, no lymphadenopathy. LUNGS: Clear. HEART: S1, S2, regular. ABDOMEN: Soft, nontender, no organomegaly. EXTREMITIES: No edema, cyanosis. SKIN: Unremarkable. NEUROLOGIC: The patient is alert, awake, and appropriate. No focal neurologic deficit. LABORATORY DATA: White count is normal. BUN and creatinine is 33 and 1.8. Blood culture as I mentioned. Chest x-ray, no acute changes. IMPRESSION: 1. Blood culture positive 2/4 coag-negative staph two different species is a contaminant. 2. Chronic obstructive pulmonary disease exacerbation. 3. Scrotal swelling and some redness, which is improving. 4. Hypertension. 5. Obesity. RECOMMENDATIONS: Discontinue vancomycin. Rest of the medication can be switched over to oral for discharge. Thank you very much, Dr. Hood, for giving me opportunity to participate in this patient's care. YVROSE/ALIREZA DR: YVROSE/nellie TID: [id number]
== END 2022-02-17 14:44 | disposition home or self-care (01) | DRG 177 ==
LOC: ER 17:54 → 5 NORTH 21:00
PROVIDERS: ADMIT Internal Medicine; ATTEND Internal Medicine
DX: J15.29 Pneumonia due to other staphylococcus (principal); J96.02 Acute respiratory failure with hypercapnia; R65.11 Systemic inflammatory response syndrome (SIRS) of non-infectious origin with acute organ dysfunction; J96.01 Acute respiratory failure with hypoxia; J44.1 Chronic obstructive pulmonary disease with (acute) exacerbation; J44.0 Chronic obstructive pulmonary disease with (acute) lower respiratory infection; J20.9 Acute bronchitis, unspecified; E66.9 Obesity, unspecified; F17.210 Nicotine dependence, cigarettes, uncomplicated; F32.A Depression, unspecified; F41.9 Anxiety disorder, unspecified; I12.9 Hypertensive chronic kidney disease with stage 1 through stage 4 chronic kidney disease, or unspecified chronic kidney disease; B95.7 Other staphylococcus as the cause of diseases classified elsewhere; M19.90 Unspecified osteoarthritis, unspecified site; N18.30 Chronic kidney disease, stage 3 unspecified; N50.89 Other specified disorders of the male genital organs; Z82.49 Family history of ischemic heart disease and other diseases of the circulatory system; Z68.37 Body mass index [BMI] 37.0-37.9, adult
CPT/HCPCS: 36415; 71046; 76870; 80048; 80053; 84145; 84484; 85025; 85379; 87015; 87040; 87077; 93005; 94640; 96374; 96375; J0696; J2930; J3370; J7040; 99285-25; G0378